=== PATIENT | female | born 1990 | race Caucasian/White ===

== ENCOUNTER 2016-05-30 15:00 | Inpatient (IN) | payer OTHER ==
[2016-05-30 17:28] VITALS: BMI 21.6
--- NOTE | 2016-05-30 18:14 | HP ---
COWS - Scale Resting Pulse: 0= [place] 80 or Below Sweatin=Flushed/Facial Moisture Restless Observation: 3= Extraneous Movement Pupil Size: 0= Normal to Room Light Bone or Joint Aches: 2= Severe Diffuse Aches Runny Nose/ Eye Tearin= Nasal Congestion GI Upset > 30mins: 2= Nausea/Diarrhea Tremor Observation: 2= Slight Tremor Visible Yawning Observation: 1= 1-2x During Session Anxiety or Irritability: 2=Irritable/Anxious Goose Flesh Skin: 0=Smooth Skin COWS Score: [address] [facility] Chief Complaint: WITHDRAWAL SX Allergies/Adverse Reactions: Allergies Allergy/AdvReac Type Severity Reaction Status Date / Time No Known Allergies Allergy Verified 05/30/16 17:35 History of Present Illness: 26 YEARS OLD FEMALE WITH LONG HISTORY OF OPIATE NICOTINE DEPENDENCE, HAS ASTHMA WEIGHT LOSS GERD AND BIPOLAR II IS ADMITTED TO DETOX Exam Limitations: No Limitations - Ebola screening Have you traveled outside of the country in the last 21 days: No Have you had contact with anyone from an Ebola affected area: No Have you been sick,other than usual withdrawal symptoms: No Do you have a fever: No - Review of Systems Constitutional: Chills, Loss of Appetite, Changes in sleep, Unexplained wgt Loss EENT: reports: Dental Problems (ORAL SORE UPPER GUM AND ORAL FLOOR), Other (EAR WAX RIGHT EAR) Respiratory: reports: No Symptoms reported Cardiac: reports: No Symptoms Reported GI: reports: Diarrhea, Nausea, Poor Appetite, Poor Fluid Intake, Indigestion, Abdominal cramping : reports: No Symptoms Reported Musculoskeletal: reports: Back Pain, Joint Pain, Muscle Pain, Neck Pain Integumentary: reports: Change in Color (BOTH INNER ELBOWS IV OPIATE) Neuro: reports: Seizure (LAST EPISODE 02/2015 - TREATED WITH KEPPRA LAST DOSE 3 MONTHS AGO), Tremors Endocrine: reports: No Symptoms Reported Hematology: reports: No Symptoms Reported Psychiatric: reports: Judgement Intact, Orientated x3, Anxious, Depressed Other Systems: Reviewed and Negative Patient History - Patient Medical History Hx Anemia: No Hx Asthma: Yes Hx Chronic Obstructive Pulmonary Disease (COPD): Yes Hx Cancer: No Hx Cardiac Disorders: No Hx Congestive Heart Failure: No Hx Hypertension: No Hx Hypercholesterolemia: No Hx Pacemaker: No HX Cerebrovascular Accident: No Hx Seizures: Yes (2014) Hx Dementia: No Hx Diabetes: No Hx Gastrointestinal Disorders: Yes Hx Liver Disease: No Hx Genitourinary Disorders: No Hx Sexually Transmitted Disorders: No Hx Renal Disease (ESRD): No Hx Thyroid Disease: No Hx Human Immunodeficiency Virus (HIV): No Hx Hepatitis C: No Hx Depression: No Hx Suicide Attempt: Yes (12 YEARS OLD CUT WRISTS) Hx Bipolar Disorder: Yes Hx Schizophrenia: No - Patient Surgical History Past Surgical History: No Hx Neurologic Surgery: No Hx Cataract Extraction: No Hx Cardiac Surgery: No Hx Lung Surgery: No Hx Breast Surgery: No Hx Breast Biopsy: No Hx Abdominal Surgery: No Hx Appendectomy: No Hx Cholecystectomy: No Hx Genitourinary Surgery: No Hx Orthopedic Surgery: No - PPD History Previous Implant?: Yes Documented Results: Negative w/o proof Implanted On Prior R Admission?: No PPD to be Administered?: Yes - Reproductive History Patient is a Female of Child Bearing Age (11 -55 yrs old): Yes Last Menstrual Period: 01/08/15 Patient : No - Smoking Cessation Smoking history: Current every day smoker Aproximately how many cigarettes per day: 2 Cigars Per Day: 0 Hx Chewing Tobacco Use: No Initiated information on smoking cessation: Yes 'Breaking Loose' booklet given: 05/30/16 - Substance & Tx. History Hx Alcohol Use: No Hx Substance Use: Yes Substance Use Type: Heroin, Marijuana, Opiates, Tranquilizers Hx Substance Use Treatment: Yes - Substances Abused Heroin Route: Injection Frequency: Daily Amount used: 15 bags Age of first use: 24 Date of Last Use: 05/29/16 Alprazolam (Xanax) Route: Oral Frequency: Daily Amount used: 10mg Age of first use: 14 Date of Last Use: 05/29/16 Family Disease History - Family Disease History Family Disease History: [place]: Mother, Brother, Other: Father (NO CONTACT), Mother Admission Physical Exam [facility] - Vital Signs Vital Signs: Vital Signs - 24 hr 05/30/16 17:25 Temperature 97.4 F L Pulse Rate 62 Respiratory 18 Rate Blood Pressure 113/62 - Physical General Appearance: Yes: Appropriately Dressed, Moderate Distress, Thin, Tremorous, Irritable, Sweating, Anxious HEENTM: Yes: Hearing grossly Normal, Normal ENT Inspection, Normocephalic, Normal Voice, Thrush Respiratory: Yes: Chest Non-Tender, No Respiratory Distress, No Accessory Muscle Use, Wheezing, Expiration Neck: Yes: Supple, Trachea in good position Breast: Yes: Breasts Symetrical Cardiology: Yes: Regular Rhythm, Regular Rate, S1, S2 Abdominal: Yes: Non Tender, Soft Genitourinary: Yes: Within Normal Limits, Vaginal Discharge (DIFLUCAN 150 MG PO X 1) Back: Yes: Normal Inspection Musculoskeletal: Yes: full range of Motion, Gait Steady, Back pain, Muscle Pain Extremities: Yes: Normal Range of Motion, Non-Tender, Tremors Neurological: Yes: Fully Oriented, Alert, Motor Strength 5/5, Normal Response, Depressed Affect Integumentary: Yes: Warm, Track [place] Lymphatic: Yes: Within Normal Limits - Diagnostic (1) Opioid dependence with withdrawal Current Visit: Yes Status: Acute (2) Asthma Current Visit: Yes Status: Acute Qualifiers: Asthma severity: mild persistent Asthma complication type: with status asthmaticus Qualified Code(s): J45.32 - Mild persistent asthma with status asthmaticus (3) Weight loss Current Visit: Yes Status: Acute (4) GERD (gastroesophageal reflux disease) Current Visit: Yes Status: Acute Qualifiers: Esophagitis presence: without esophagitis Qualified Code(s): K21.9 - Gastro-esophageal reflux disease without esophagitis (5) Nicotine dependence Current Visit: Yes Status: Acute Qualifiers: Nicotine product type: cigarettes Substance use status: in withdrawal Qualified Code(s): F17.213 - Nicotine dependence, cigarettes, with withdrawal (6) Bipolar II disorder Current Visit: Yes Status: Suspected (7) Thrush, oral Current Visit: Yes Status: Acute (8) Wax in ear Current Visit: Yes Status: Acute Cleared for Admission [facility] - Detox or Rehab [facility] Level of Care: Medically Managed Detox Regimen/Protocol: Methadone/Valium [facility] Breath Alcohol Content Breath Alcohol Content: 0 Urine Pregancy Test - Result Urine Test Results: Negative- NO Line Present Urine Drug Screen - Results Drug Screen Negative: No Urine Drug Screen Results: THC-Marijuana, OPI-Opiates, BZO-Benzodiazepines, MTD- Methadone, TCA-Tricyclic Antidepress, OXY-Oxycodone
[2016-05-30] MEDS ORDERED: MAGNESIUM CITRATE 300 ML BOTTLE PO PRN (18:20)
[2016-05-30] MEDS ORDERED: MAGNESIUM HYDROX 2400MG/30ML ORAL SUSPENSION 30 ML CUP PO PRN (18:20)
[2016-05-30] MEDS ORDERED: LOPERAMIDE HCL 2 MG CAPSULE PO PRN (18:20)
[2016-05-30] MEDS ORDERED: ACETAMINOPHEN 325 MG TABLET (FP) PO PRN (18:20)
[2016-05-30] MEDS ORDERED: guaiFENesin/D-METHORPHAN HB 10 ML UNIT-DOSE CUPS PO PRN (18:20)
[2016-05-30] MEDS ORDERED: MAG HYDROX/AL HYDROX/SIMETH 30 ML UNIT-DOSE CUP PO PRN (18:20)
[2016-05-30] MEDS ORDERED: MENTHOL/PHENOL 1 EACH UD MM PRN (18:20)
[2016-05-30] MEDS ORDERED: METHADONE HCL 10 MG TABLET (FOR DETOX USE ONLY) PO ONE ×2 (18:20→23:00)
[2016-05-30] MEDS ORDERED: diazePAM 5 MG TABLET PO ONE (18:20)
[2016-05-30] MEDS ORDERED: P-EPHED 60MG/TRIPROLIDI 2.5MG TABLET PO PRN (18:20)
[2016-05-30] MEDS ORDERED: NICOTINE POLACRILEX 2 MG GUM BC PRN (18:20)
[2016-05-30] MEDS ORDERED: ALBUTEROL SO4 2.5/IPRATROPIUM 0.5 INH SOL 3 ML VIAL.NEB. NEB PRN (18:23)
[2016-05-30] MEDS ORDERED: FLUCONAZOLE 50 MG TABLET PO ONE (18:26)
[2016-05-30] MEDS ORDERED: FLUCONAZOLE 100 MG TABLET (UD) PO ONE (20:45)
[2016-05-30] MEDS: diazePAM 5 MG TABLET PO SCH (22:24)
[2016-05-30] MEDS: CARBAMIDE PEROXIDE 6.5% OTIC 15 ML BOTTLE AD SCH (22:24)
[2016-05-30] MEDS: THIAMINE HCL 100 MG TABLET (FP) PO SCH (22:24)
[2016-05-30] MEDS: diphenhydrAMINE HCL 50 MG CAPSULE PO PRN (22:28)
[2016-05-30] MEDS: RANITIDINE HCL 150 MG TABLET (FP) PO SCH (22:29)
[2016-05-30 22:51] LABS: URINE APPEARANCE SLCLOUDY; URINE BILIRUBIN NEGATIVE (NEGATIVE); URINE BLOOD NEGATIVE (NEGATIVE); URINE COLOR YELLOW; URINE GLUCOSE (UA) NEGATIVE (NEGATIVE); URINE KETONE NEGATIVE (NEGATIVE); URINE NITRITE NEGATIVE (NEGATIVE); URINE UROBILINOGEN 2.0 E.U/dl E.U./dl (0.2-1.0)
[2016-05-30 22:52] LABS: URINE LEUK ESTERASE TRACE (NEGATIVE); URINE PROTEIN 2+ (NEGATIVE)
[2016-05-30 22:57] LABS: URINE BACTERIA RARE /hpf (NONE SEEN); URINE HYALINE CAST 2 /lpf; URINE MUCUS MANY; URINE RBC 5 /hpf (0-3); URINE WBC 26 /hpf (3-5)
[2016-05-30] MEDS: NYSTATIN 500,000 UNITS/5 ML SUSPENSION PO SCH (23:22)
[2016-05-31] MEDS: diazePAM 5 MG TABLET PO PRN ×3 (00:34→18:01)
[2016-05-31] MEDS: diphenhydrAMINE HCL 50 MG CAPSULE PO PRN (00:34)
[2016-05-31] MEDS: IBUPROFEN 400 MG TABLET (FP) PO PRN (00:35)
[2016-05-31] MEDS: ALBUTEROL SO4 6.7 GM HFA INHALER IH PRN (01:20)
[2016-05-31] MEDS: diazePAM 5 MG TABLET PO SCH ×3 (05:14→22:05)
[2016-05-31] MEDS: NYSTATIN 500,000 UNITS/5 ML SUSPENSION PO SCH ×4 (05:15→23:54)
[2016-05-31] MEDS ORDERED: ALBUTEROL SO4 6.7 GM HFA INHALER IH SCH (06:00)
[2016-05-31] MEDS ORDERED: METHADONE HCL 10 MG TABLET (FOR DETOX USE ONLY) PO SCH (10:00)
[2016-05-31 10:14] LABS: MCHC 33.6 g/dl (32.0-36.0); MEAN CELL VOLUME 83.4 fl (80-96); MEAN PLT VOLUME 9.8 fl (7.5-11.1); PLATELET COUNT 231 K/MM3 (134-434); RDW 15.5 % (11.6-15.6)
[2016-05-31] MEDS: PRENATAL VITAMINS W/ FOLIC ACID TABLET (FP) PO SCH (10:22)
[2016-05-31] MEDS: RANITIDINE HCL 150 MG TABLET (FP) PO SCH ×2 (10:22→22:05)
[2016-05-31] MEDS: NICOTINE 14 MG/24 HOURS TOPICAL PATCH TD SCH (10:23)
--- NOTE | 2016-05-31 10:29 | PN ---
[facility] CIWA - CIWA Score Nausea/Vomitin-No Nausea/No Vomiting Muscle Tremors: 4-Moderate,w/Arms Extend Anxiety: 3 Agitation: 4-Moderately Restless Paroxysmal Sweats: 3 Orientation: 0-Oriented Tacttile Disturbances: 0-None Auditory Disturbances: 0-None Visual Disturbances: 0-None Headache: 1-Very Mild CIWA-Ar Total Score: 15 [facility] COWS - Scale Resting Pulse: 0= [place] 80 or Below Sweatin=Flushed/Facial Moisture Restless Observation: 1= Difficult to Sit Still Pupil Size: 0= Normal to Room Light Bone or Joint Aches: 2= Severe Diffuse Aches Runny Nose/ Eye Tearin= Runny Nose/Eyes GI Upset > 30mins: 2= Nausea/Diarrhea Tremor Observation of Outstretched Hands: 2= Slight Tremor Visible Yawning Observation: 2= >3x During Session Anxiety or Irritability: 2=Irritable/Anxious Goose Flesh Skin: 0=Smooth Skin COWS Score: 15 [facility] Progress Note (SOAP) Subjective: nausea sweats shakes body aches interrupted sleep agitation irritable its hard to eat with my poor teeth foul smell with vaginal discharge Objective: 05/31/16 10:34 Vital Signs Temperature 98.2 F 05/31/16 09:55 Pulse Rate 61 05/31/16 09:55 Respiratory Rate 18 05/31/16 09:55 Blood Pressure 132/83 05/31/16 09:55 O2 Sat by Pulse Oximetry (%) Laboratory Tests 05/30/16 05/31/16 05/31/16 22:40 05:50 05:50 WBC 8.0 RBC 4.58 Hgb 12.8 Hct 38.2 MCV 83.4 MCHC 33.6 RDW 15.5 Plt Count 231 MPV 9.8 Sodium 143 Potassium 4.0 Chloride 106 Urine Color Yellow Urine Appearance Slcloudy Urine pH 7.0 Ur Specific [place] 1.020 Urine Protein 2+ H Urine Glucose (UA) Negative Urine Ketones Negative Urine Blood Negative Urine Nitrite Negative Urine Bilirubin Negative Urine Urobilinogen 2.0 e.u/dl H Ur Leukocyte Esterase Trace H Urine RBC 5 Urine WBC 26 Ur Epithelial Cells Few Urine Bacteria Rare Hyaline Casts 2 Urine Mucus Many awake/alert ambulating no acute distress Assessment: 05/31/16 10:35 withdrawal sx Plan: continue detox increase fluids flagyl 500mg tid tigan po prn analgesic balm dietary technical sales consultant
--- NOTE | 2016-05-31 10:46 | EKG ---
Test Reason : Blood Pressure : / mmHG Vent. Rate : 046 BPM Atrial Rate : 046 BPM P-R Int : 148 ms QRS Dur : 084 ms QT Int : 504 ms P-R-T Axes : 035 041 033 degrees QTc Int : 441 ms SINUS BRADYCARDIA WITH SINUS ARRHYTHMIA OTHERWISE NORMAL ECG NO PREVIOUS ECGS AVAILABLE Confirmed by RAISA DUMONT MD ([id number]) on 05/31/2016 10:46:38 AM Referred By: Confirmed By:RAISA DUMONT MD
[2016-05-31] MEDS ORDERED: TRIMETHOBENZAMIDE HCL 300 MG CAPSULE PO ONE (10:50)
[2016-05-31 10:55] LABS: ALBUMIN 3.7 g/dl (3.4-5.0); ALK PHOS 51 U/L (45-117); ANION GAP 11 (8-16); BILIRUBIN,TOTAL 0.5 mg/dL (0.2-1.0); CALCIUM 9.1 mg/dL (8.5-10.1); CO2 26 mmol/L (21-32); CREATININE 0.8 mg/dL (0.55-1.02); GLUCOSE,RANDOM 102 mg/dL (74-106); SGOT/AST 25 U/L (15-37); SGPT/ALT 30 U/L (12-78); TOT PROT 7.7 g/dl (6.4-8.2)
[2016-05-31] MEDS: CARBAMIDE PEROXIDE 6.5% OTIC 15 ML BOTTLE AD SCH ×2 (11:02→22:06)
[2016-05-31] MEDS: LIDOCAINE 5% TOPICAL PATCH TP SCH (11:05)
[2016-05-31 12:30] LABS: HIV 1 & 2 AB NEGATIVE; HIV 1 AGp24 NEGATIVE
[2016-05-31] MEDS: hydrOXYzine PAMOATE 50 MG CAPSULE (FP) PO PRN (13:03)
[2016-05-31] MEDS: metroNIDAZOLE 250 MG TABLET PO SCH ×2 (15:30→22:05)
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
[2016-05-31] MEDS: QUEtiapine FUMARATE 100 MG TABLET (FP) PO SCH (22:05)
[2016-05-31] MEDS: THIAMINE HCL 100 MG TABLET (FP) PO SCH (22:05)
[2016-05-31] MEDS: DIVALPROEX SODIUM 250 MG TABLET E.C. (FP) PO SCH (22:05)
[2016-05-31] MEDS: ZOLPIDEM TARTRATE 5 MG TABLET PO PRN (22:05)
[2016-05-31] MEDS: METHYL SALICYLATE/MENTHOL OINT 30 GM TUBE TP SCH (22:06)
[2016-06-01] MEDS: diazePAM 5 MG TABLET PO PRN ×3 (05:19→18:49)
[2016-06-01] MEDS: metroNIDAZOLE 250 MG TABLET PO SCH ×3 (05:20→22:06)
[2016-06-01] MEDS: NYSTATIN 500,000 UNITS/5 ML SUSPENSION PO SCH ×3 (05:23→17:24)
[2016-06-01] MEDS: TRIMETHOBENZAMIDE HCL 300 MG CAPSULE PO PRN (10:03)
[2016-06-01] MEDS: METHADONE HCL 5 MG TABLET (FOR DETOX USE ONLY) PO SCH (10:03)
[2016-06-01] MEDS: DIVALPROEX SODIUM 250 MG TABLET E.C. (FP) PO SCH ×2 (10:03→22:06)
[2016-06-01] MEDS: PRENATAL VITAMINS W/ FOLIC ACID TABLET (FP) PO SCH (10:03)
[2016-06-01] MEDS: diazePAM 5 MG TABLET PO SCH ×2 (10:04→22:07)
[2016-06-01] MEDS: NICOTINE 14 MG/24 HOURS TOPICAL PATCH TD SCH (10:05)
[2016-06-01] MEDS: METHYL SALICYLATE/MENTHOL OINT 30 GM TUBE TP SCH ×2 (10:05→22:07)
[2016-06-01] MEDS: RANITIDINE HCL 150 MG TABLET (FP) PO SCH ×2 (10:07→22:06)
[2016-06-01] MEDS: hydrOXYzine PAMOATE 50 MG CAPSULE (FP) PO PRN ×2 (10:07→18:14)
[2016-06-01] MEDS: LIDOCAINE 5% TOPICAL PATCH TP SCH (11:00)
--- NOTE | 2016-06-01 11:26 | PN ---
[facility] CIWA - CIWA Score Nausea/Vomitin Muscle Tremors: 3 Anxiety: 3 Agitation: 3 Paroxysmal Sweats: 3 Orientation: 0-Oriented Tacttile Disturbances: 1-Very Mild Itch/Numbness Auditory Disturbances: 0-None Visual Disturbances: 0-None Headache: 0-None Present CIWA-Ar Total Score: 15 S COWS - Scale Resting Pulse: 1= [place] 81-100 Sweatin= Chills/Flushing Restless Observation: 1= Difficult to Sit Still Pupil Size: 1= Pupils >than Normal Bone or Joint Aches: 1= Mild Discomfort Runny Nose/ Eye Tearin= Nasal Congestion GI Upset > 30mins: 1= Stomach Cramp Tremor Observation of Outstretched Hands: 1= Tremor [place], Not Seen Yawning Observation: 0= None Anxiety or Irritability: 0= None Goose Flesh Skin: 0=Smooth Skin COWS Score: 8 [facility] Progress Note (SOAP) Subjective: interrupted sleep, sweats, Objective: 06/01/16 11:23 Vital Signs Temperature 98.1 F 06/01/16 09:58 Pulse Rate 74 06/01/16 09:58 Respiratory Rate 16 06/01/16 09:58 Blood Pressure 145/83 06/01/16 09:58 O2 Sat by Pulse Oximetry (%) Laboratory Tests 05/30/16 05/31/16 05/31/16 22:40 05:50 05:50 WBC 8.0 RBC 4.58 Hgb 12.8 Hct 38.2 MCV 83.4 MCHC 33.6 RDW 15.5 Plt Count 231 MPV 9.8 Sodium 143 Potassium 4.0 Chloride 106 Carbon Dioxide 26 Anion Gap 11 BUN 9 Creatinine 0.8 Creat Clearance w eGFR > 60 Random Glucose 102 Calcium 9.1 Total Bilirubin 0.5 AST 25 ALT 30 Alkaline Phosphatase 51 Total Protein 7.7 Albumin 3.7 Urine Color Yellow Urine Appearance Slcloudy Urine pH 7.0 Ur Specific [place] 1.020 Urine Protein 2+ H Urine Glucose (UA) Negative Urine Ketones Negative Urine Blood Negative Urine Nitrite Negative Urine Bilirubin Negative Urine Urobilinogen 2.0 e.u/dl H Ur Leukocyte Esterase Trace H Urine RBC 5 Urine WBC 26 Ur Epithelial Cells Few Urine Bacteria Rare Hyaline Casts 2 Urine Mucus Many Valproic Acid RPR Titer HIV 1&2 Antibody Screen HIV P24 Antigen 05/31/16 05/31/16 05/31/16 05:50 05:50 05:50 WBC RBC Hgb Hct MCV MCHC RDW Plt Count MPV Sodium Potassium Chloride Carbon Dioxide Anion Gap BUN Creatinine Creat Clearance w eGFR Random Glucose Calcium Total Bilirubin AST ALT Alkaline Phosphatase Total Protein Albumin Urine Color Urine Appearance Urine pH Ur Specific [place] Urine Protein Urine Glucose (UA) Urine Ketones Urine Blood Urine Nitrite Urine Bilirubin Urine Urobilinogen Ur Leukocyte Esterase Urine RBC Urine WBC Ur Epithelial Cells Urine Bacteria Hyaline Casts Urine Mucus Valproic Acid < 3.000 L RPR Titer Nonreactive HIV 1&2 Antibody Screen Negative HIV P24 Antigen Negative pt aox3 irritable , Assessment: 06/01/16 11:24 withdrawal sx;s anxiety Plan: cont. detox increase fluids flexeril 10mg tid
[2016-06-01] MEDS: CARBAMIDE PEROXIDE 6.5% OTIC 15 ML BOTTLE AD SCH ×2 (11:51→22:07)
[2016-06-01] MEDS: QUEtiapine FUMARATE 100 MG TABLET (FP) PO SCH (22:06)
[2016-06-01] MEDS: ZOLPIDEM TARTRATE 5 MG TABLET PO PRN (22:06)
[2016-06-01] MEDS: CYCLOBENZAPRINE HCL 10 MG TABLET (FP) PO PRN (22:06)
[2016-06-01] MEDS: THIAMINE HCL 100 MG TABLET (FP) PO SCH (22:06)
[2016-06-02] MEDS: hydrOXYzine PAMOATE 50 MG CAPSULE (FP) PO PRN ×3 (00:09→20:15)
[2016-06-02] MEDS: NYSTATIN 500,000 UNITS/5 ML SUSPENSION PO SCH ×4 (00:14→17:41)
[2016-06-02] MEDS: metroNIDAZOLE 250 MG TABLET PO SCH ×3 (07:15→22:31)
[2016-06-02] MEDS: diazePAM 5 MG TABLET PO PRN ×3 (07:22→17:41)
[2016-06-02] MEDS: METHYL SALICYLATE/MENTHOL OINT 30 GM TUBE TP SCH ×2 (10:08→22:31)
[2016-06-02] MEDS: RANITIDINE HCL 150 MG TABLET (FP) PO SCH ×2 (10:09→22:30)
[2016-06-02] MEDS: NICOTINE 14 MG/24 HOURS TOPICAL PATCH TD SCH (10:09)
[2016-06-02] MEDS: PRENATAL VITAMINS W/ FOLIC ACID TABLET (FP) PO SCH (10:09)
[2016-06-02] MEDS: METHADONE HCL 5 MG TABLET (FOR DETOX USE ONLY) PO SCH (10:09)
[2016-06-02] MEDS: DIVALPROEX SODIUM 250 MG TABLET E.C. (FP) PO SCH ×2 (10:09→22:31)
[2016-06-02] MEDS: diazePAM 5 MG TABLET PO SCH ×2 (10:09→22:31)
[2016-06-02] MEDS: CARBAMIDE PEROXIDE 6.5% OTIC 15 ML BOTTLE AD SCH ×2 (10:13→22:31)
[2016-06-02] MEDS: LIDOCAINE 5% TOPICAL PATCH TP SCH (10:13)
[2016-06-02] MEDS: TRIMETHOBENZAMIDE HCL 300 MG CAPSULE PO PRN (10:15)
[2016-06-02] MEDS: CYCLOBENZAPRINE HCL 10 MG TABLET (FP) PO PRN ×2 (10:15→22:31)
--- NOTE | 2016-06-02 11:36 | PN ---
Psychiatric Progress Note Vital Signs: Vital Signs Period Temp Pulse Resp BP Sys/Pedro Pulse Ox Last 24 Hr 95.8 F-99.3 F 58-82 14-20 117-140/55-75 Date of Session: 06/02/16 Chief Complaint:: Insomnia HPI: Patient reports taking prior to admission Seroquel 300mg po qhs, current order for Seroquel 100mg po qhs is not enough for h[Insomnia she has, patioent asking to adjust her Seroquel dosage Current Medications: Active Medications Generic Name Dose Route Start Last Admin Trade Name Freq PRN Reason Stop Dose Admin Acetaminophen 650 mg 05/30/16 18:20 Tylenol - PO Q4H PRN FEVER OR PAIN Al Hydroxide/Mg Hydroxide 30 ml 05/30/16 18:20 Mylanta Oral Suspension - PO Q6H PRN DYSPEPSIA Albuterol Sulfate 2 puff 05/30/16 18:22 05/31/16 01:20 Ventolin Hfa Inhaler - IH 2 puff Q4H PRN Administration SHORT OF BREATH/WHEEZING Albuterol/Ipratropium 1 amp 05/30/16 18:23 Duoneb - NEB Q6H PRN SHORTNESS OF BREATH Carbamide Perox/Anhydrous Glycerin 10 drop 05/30/16 22:00 06/02/16 10:13 Debrox - AD 06/03/16 21:59 Not Given BID FRIDA Cyclobenzaprine HCl 10 mg 06/01/16 10:10 06/02/16 10:15 Flexeril - PO 10 mg TID PRN Administration MUSCLE SPASMS Diazepam 10 mg 05/30/16 18:20 06/02/16 07:22 Valium - PO 06/02/16 18:20 10 mg Q4H PRN Administration WITHDRAWAL(CONT SUBST) Diazepam 5 mg 06/01/16 10:00 06/02/16 10:09 Valium - PO 06/02/16 22:01 5 mg BID FRIDA Administration Diazepam 5 mg 06/03/16 10:00 Valium - PO 06/03/16 10:01 DAILY FRIDA Diphenhydramine HCl 50 mg 05/30/16 18:20 05/31/16 00:34 Benadryl - PO 50 mg HSMR1 PRN Administration INSOMNIA Divalproex Sodium 250 mg 05/31/16 22:00 06/02/16 10:09 Depakote - PO 250 mg BID FRIDA Administration Eucalyptus/Menthol/Phenol/Sorbitol 1 each 05/30/16 18:20 Cepastat Lozenge - MM Q4H PRN SORE THROAT Guaifenesin 10 ml 05/30/16 18:20 Robitussin Dm - PO Q6H PRN COUGH Hydroxyzine Pamoate 50 mg 05/31/16 12:47 06/02/16 11:15 Vistaril - PO 50 mg Q4H PRN Administration FOR ITCHING Ibuprofen 400 mg 05/30/16 18:20 05/31/16 00:35 Motrin - PO 400 mg Q6H PRN Administration SEVERE PAIN Lidocaine 1 patch 05/31/16 10:45 06/02/16 10:13 Lidoderm Patch - TP 1 patch DAILY FRIDA Administration Loperamide HCl 4 mg 05/30/16 18:20 Imodium - PO Q6H PRN DIARRHEA Magnesium Citrate 300 ml 05/30/16 18:20 Citroma - PO Q48H PRN CONSTIPATION Magnesium Hydroxide 30 ml 05/30/16 18:20 Milk Of Magnesia - PO DAILY PRN CONSTIPATION Methadone HCl 10 mg 06/03/16 10:00 Dolophine - PO 06/03/16 10:01 DAILY FRIDA Methadone HCl 5 mg 06/04/16 06:00 Dolophine - PO 06/04/16 06:01 DAILY@0600 FRIDA Methyl Salicylate 1 applic 05/31/16 22:00 06/02/16 10:08 Chava-Lamb - TP 1 applic BID FRIDA Administration Metronidazole 500 mg 05/31/16 14:00 06/02/16 07:15 Flagyl - PO 06/07/16 13:59 500 mg TID FRIDA Administration Nicotine 14 mg 05/31/16 10:00 06/02/16 10:09 Nicoderm Patch - TD Not Given DAILY FRIDA Nicotine Polacrilex 2 mg 05/30/16 18:20 Nicorette Gum - BC Q2H PRN NICOTINE REPLACEMENT RX Nystatin 500,000 units 05/31/16 00:00 06/02/16 11:15 Nystatin Oral Suspension - PO 06/05/16 00:00 500,000 units Q6HPO FRIDA Administration Multivit/Folic Acid/Iron 1 tab 05/31/16 10:00 06/02/16 10:09 Vitamins (Sjr) - PO 1 tab DAILY FRIDA Administration Pseudoephedrine/Triprolidine 1 combo 05/30/16 18:20 Actifed - PO TID PRN NASAL CONGESTION Quetiapine Fumarate 100 mg 05/31/16 22:00 06/01/16 22:06 Seroquel - PO 100 mg HS FRIDA Administration Ranitidine HCl 150 mg 05/30/16 22:00 06/02/16 10:09 Zantac - PO 150 mg BID FRIDA Administration Thiamine HCl 100 mg 05/30/16 22:00 06/01/16 22:06 Vitamin B1 - PO 100 mg HS FRIDA Administration Trimethobenzamide HCl 300 mg 05/31/16 10:33 06/02/16 10:15 Tigan - PO 300 mg QID PRN Administration NAUSEA AND/OR VOMITING Zolpidem Tartrate 5 mg 05/31/16 16:10 06/01/16 22:06 Ambien - PO 5 mg HS PRN Administration INSOMNIA Medication(s) Change(s): Seroquel 200mg po qhs Mental Status Exam - Mental Status Exam Cognitive Function: Fair Patient Appearance: Unkempt Mood: Anxious Affect: Mood Congruent Patient Behavior: Cooperative Speech Pattern: Appropriate Voice Loudness: Mildly Loud Thought Process: Goal Oriented Thought Disorder: Being Controlled Hallucinations: Denies Suicidal Ideation: Denies Homicidal Ideation: Denies Insight/Judgement: Fair Sleep: Difficulty falling asleep Appetite: Weight loss Muscle strength/Tone: Normal Gait/Station: Normal Additional Comments: Seroquel 200mg po qhs Psychiatric Treatment Plan - Problem List (1) Benzodiazepine dependence Current Visit: Yes (2) Cannabis dependence Current Visit: Yes (3) Nicotine dependence Current Visit: Yes Qualifiers: Nicotine product type: cigarettes Substance use status: in withdrawal Qualified Code(s): F17.213 - Nicotine dependence, cigarettes, with withdrawal (4) Opioid dependence with withdrawal Current Visit: Yes (5) Substance induced mood disorder Current Visit: Yes (6) Bipolar II disorder Current Visit: Yes Initial treatment plan: Seroquel 200mg po qhs
[2016-06-02] MEDS: TRIMETHOBENZAMIDE HCL 200MG/2ML INJ IM PRN ×2 (12:04→20:15)
--- NOTE | 2016-06-02 13:32 | PN ---
[facility] Progress Note (SOAP) Subjective: interrupted sleep, sweats, nausea ,vomiting Objective: 06/02/16 13:30 Vital Signs Temperature 98.2 F 06/02/16 09:37 Pulse Rate 77 06/02/16 09:37 Respiratory Rate 16 06/02/16 09:37 Blood Pressure 124/75 06/02/16 09:37 O2 Sat by Pulse Oximetry (%) Laboratory Tests 05/30/16 05/31/16 05/31/16 22:40 05:50 05:50 WBC 8.0 RBC 4.58 Hgb 12.8 Hct 38.2 MCV 83.4 MCHC 33.6 RDW 15.5 Plt Count 231 MPV 9.8 Sodium 143 Potassium 4.0 Chloride 106 Carbon Dioxide 26 Anion Gap 11 BUN 9 Creatinine 0.8 Creat Clearance w eGFR > 60 Random Glucose 102 Calcium 9.1 Total Bilirubin 0.5 AST 25 ALT 30 Alkaline Phosphatase 51 Total Protein 7.7 Albumin 3.7 Urine Color Yellow Urine Appearance Slcloudy Urine pH 7.0 Ur Specific [place] 1.020 Urine Protein 2+ H Urine Glucose (UA) Negative Urine Ketones Negative Urine Blood Negative Urine Nitrite Negative Urine Bilirubin Negative Urine Urobilinogen 2.0 e.u/dl H Ur Leukocyte Esterase Trace H Urine RBC 5 Urine WBC 26 Ur Epithelial Cells Few Urine Bacteria Rare Hyaline Casts 2 Urine Mucus Many Valproic Acid RPR Titer HIV 1&2 Antibody Screen HIV P24 Antigen 05/31/16 05/31/16 05/31/16 05:50 05:50 05:50 WBC RBC Hgb Hct MCV MCHC RDW Plt Count MPV Sodium Potassium Chloride Carbon Dioxide Anion Gap BUN Creatinine Creat Clearance w eGFR Random Glucose Calcium Total Bilirubin AST ALT Alkaline Phosphatase Total Protein Albumin Urine Color Urine Appearance Urine pH Ur Specific [place] Urine Protein Urine Glucose (UA) Urine Ketones Urine Blood Urine Nitrite Urine Bilirubin Urine Urobilinogen Ur Leukocyte Esterase Urine RBC Urine WBC Ur Epithelial Cells Urine Bacteria Hyaline Casts Urine Mucus Valproic Acid < 3.000 L RPR Titer Nonreactive HIV 1&2 Antibody Screen Negative HIV P24 Antigen Negative pt aox3 + vomiting Assessment: 06/02/16 13:31 withdrawl sx's n/v may be 2nd to flagyl 06/02/16 13:31 Plan: cont detox increase fluids tigan im
[2016-06-02] MEDS: IBUPROFEN 400 MG TABLET (FP) PO PRN (13:39)
[2016-06-02] MEDS: QUEtiapine FUMARATE 100 MG TABLET (FP) PO SCH (22:30)
[2016-06-02] MEDS: THIAMINE HCL 100 MG TABLET (FP) PO SCH (22:30)
[2016-06-02] MEDS: ZOLPIDEM TARTRATE 5 MG TABLET PO PRN (22:30)
[2016-06-02] MEDS: ALBUTEROL SO4 6.7 GM HFA INHALER IH PRN (22:32)
[2016-06-03] MEDS: NYSTATIN 500,000 UNITS/5 ML SUSPENSION PO SCH ×2 (00:07→05:53)
[2016-06-03] MEDS: metroNIDAZOLE 250 MG TABLET PO SCH (05:52)
[2016-06-03] MEDS: PRENATAL VITAMINS W/ FOLIC ACID TABLET (FP) PO SCH (09:28)
[2016-06-03] MEDS: RANITIDINE HCL 150 MG TABLET (FP) PO SCH (09:28)
[2016-06-03] MEDS: DIVALPROEX SODIUM 250 MG TABLET E.C. (FP) PO SCH (09:28)
[2016-06-03] MEDS: CYCLOBENZAPRINE HCL 10 MG TABLET (FP) PO PRN (09:30)
[2016-06-03] MEDS ORDERED: diazePAM 5 MG TABLET PO SCH (10:00)
[2016-06-03] MEDS ORDERED: METHADONE HCL 10 MG TABLET (FOR DETOX USE ONLY) PO SCH (10:00)
[2016-06-03 10:42] VITALS: BP 131/73; PULSE 83; TEMP 98.4
--- NOTE | 2016-06-03 12:50 | DS ---
[facility] Detox Discharge Summary Admission Date: 05/30/16 Discharge Date: 06/03/16 - History Present History: Cannabis Dependence, Opioid Dependence, Sedative Dependence Additional Comments: ADVISED PATIENT TO FOLLOW-UP WITH DRYWALL APPLICATOR AFTER DISCHARGE FROM DETOX FOR GENERAL MEDICAL ASSESSMENT. Pertinent Past History: Asthma, GERD, Oral thrush. - Physical Exam Results Vital Signs: Vital Signs Temperature 98.4 F 06/03/16 10:42 Pulse Rate 83 06/03/16 10:42 Respiratory Rate 20 06/03/16 10:42 Blood Pressure 131/73 06/03/16 10:42 O2 Sat by Pulse Oximetry (%) Pertinent Admission Physical Exam Findings: WITHDRAWAL SYMPTOMS. Laboratory Last Values WBC 8.0 K/mm3 (4.0-10.0) 05/31/16 05:50 RBC 4.58 M/mm3 (3.60-5.2) 05/31/16 05:50 Hgb 12.8 GM/dL (10.7-15.3) 05/31/16 05:50 Hct 38.2 % (32.4-45.2) 05/31/16 05:50 MCV 83.4 fl (80-96) 05/31/16 05:50 MCHC 33.6 g/dl (32.0-36.0) 05/31/16 05:50 RDW 15.5 % (11.6-15.6) 05/31/16 05:50 Plt Count 231 K/MM3 (134-434) 05/31/16 05:50 MPV 9.8 fl (7.5-11.1) 05/31/16 05:50 Sodium 143 mmol/L (136-145) 05/31/16 05:50 Potassium 4.0 mmol/L (3.5-5.1) 05/31/16 05:50 Chloride 106 mmol/L (98-107) 05/31/16 05:50 Carbon Dioxide 26 mmol/L (21-32) 05/31/16 05:50 Anion Gap 11 (8-16) 05/31/16 05:50 BUN 9 mg/dL (7-18) 05/31/16 05:50 Creatinine 0.8 mg/dL (0.55-1.02) 05/31/16 05:50 Creat Clearance w eGFR > 60 (>60) 05/31/16 05:50 Random Glucose 102 mg/dL (74-106) 05/31/16 05:50 Calcium 9.1 mg/dL (8.5-10.1) 05/31/16 05:50 Total Bilirubin 0.5 mg/dL (0.2-1.0) 05/31/16 05:50 AST 25 U/L (15-37) 05/31/16 05:50 ALT 30 U/L (12-78) 05/31/16 05:50 Alkaline Phosphatase 51 U/L (45-117) 05/31/16 05:50 Total Protein 7.7 g/dl (6.4-8.2) 05/31/16 05:50 Albumin 3.7 g/dl (3.4-5.0) 05/31/16 05:50 Urine Color Yellow 05/30/16 22:40 Urine Appearance Slcloudy 05/30/16 22:40 Urine pH 7.0 (5.0-8.0) 05/30/16 22:40 Ur Specific [place] 1.020 (1.001-1.035) 05/30/16 22:40 Urine Protein 2+ (NEGATIVE) H 05/30/16 22:40 Urine Glucose (UA) Negative (NEGATIVE) 05/30/16 22:40 Urine Ketones Negative (NEGATIVE) 05/30/16 22:40 Urine Blood Negative (NEGATIVE) 05/30/16 22:40 Urine Nitrite Negative (NEGATIVE) 05/30/16 22:40 Urine Bilirubin Negative (NEGATIVE) 05/30/16 22:40 Urine Urobilinogen 2.0 e.u/dl E.U./dl (0.2-1.0) H 05/30/16 22:40 Ur Leukocyte Esterase Trace (NEGATIVE) H 05/30/16 22:40 Urine RBC 5 /hpf (0-3) 05/30/16 22:40 Urine WBC 26 /hpf (3-5) 05/30/16 22:40 Ur Epithelial Cells Few /hpf (FEW) 05/30/16 22:40 Urine Bacteria Rare /hpf (NONE SEEN) 05/30/16 22:40 Hyaline Casts 2 /lpf 05/30/16 22:40 Urine Mucus Many 05/30/16 22:40 Valproic Acid < 3.000 ug/ml (50-100) L 05/31/16 05:50 RPR Titer Nonreactive (NONREACTIVE) 05/31/16 05:50 HIV 1&2 Antibody Screen Negative 05/31/16 05:50 HIV P24 Antigen Negative 05/31/16 05:50 LABS NOTED. - Treatment Hospital Course: Detoxed Safely, Responded well - Medication Discharge Medications: Ambulatory Orders Albuterol Sulfate Inhaler - [Ventolin Hfa Inhaler -] 1 - 2 inh PO QID 05/30/16 Divalproex [Depakote -] 500 mg PO DAILY 05/30/16 Quetiapine Fumarate [Seroquel -] 300 mg PO HS 05/30/16 Divalproex [Depakote -] 250 mg PO BID #30 tablet.ec 05/31/16 Quetiapine Fumarate [Seroquel] 100 mg PO HS #30 tablet 05/31/16 - Diagnosis (1) Benzodiazepine dependence Status: Acute (2) Cannabis dependence Status: Acute (3) Nicotine dependence Status: Chronic Qualifiers: Nicotine product type: cigarettes Substance use status: uncomplicated Qualified Code(s): F17.210 - Nicotine dependence, cigarettes, uncomplicated (4) Opioid dependence with withdrawal Status: Acute (5) Substance induced mood disorder Status: Acute (6) Thrush, oral Status: Acute (7) Wax in ear Status: Acute (8) Weight loss Status: Acute (9) Asthma Status: Chronic Qualifiers: Asthma severity: mild persistent Asthma complication type: with status asthmaticus Qualified Code(s): J45.32 - Mild persistent asthma with status asthmaticus (10) GERD (gastroesophageal reflux disease) Status: Chronic Qualifiers: Esophagitis presence: without esophagitis Qualified Code(s): K21.9 - Gastro-esophageal reflux disease without esophagitis - AMA Did Patient Leave Against Medical Advice: Yes (PATIENT WANTED TO LEAVE DETOX EARLY TO GO TO OUTPATIENT PROGRAM.)
[2016-06-04] MEDS ORDERED: METHADONE HCL 5 MG TABLET (FOR DETOX USE ONLY) PO SCH (06:00)
== END 2016-06-03 09:51 | disposition left against medical advice (07) | DRG 770 ==
LOC: YASAS 15:00 → Y6N 19:09
PROVIDERS: ADMIT Internal Medicine Addiction Medicine; ATTEND Internal Medicine Addiction Medicine
PROC: HZ2ZZZZ Detoxification Services for Substance Abuse Treatment (ICD-10-PCS; principal; 2016-06-03)
DX: F11.23 Opioid dependence with withdrawal (principal); F12.20 Cannabis dependence, uncomplicated; F17.210 Nicotine dependence, cigarettes, uncomplicated; F19.24 Other psychoactive substance dependence with psychoactive substance-induced mood disorder; F31.81 Bipolar II disorder; J45.32 Mild persistent asthma with status asthmaticus; K21.9 Gastro-esophageal reflux disease without esophagitis; B37.0 Candidal stomatitis; H61.21 Impacted cerumen, right ear; R63.4 Abnormal weight loss; Z68.21 Body mass index [BMI] 21.0-21.9, adult
CPT/HCPCS: 36415; 80053; 80164; 81003; 81015; 85027; 86593; 87389; 93005; 93010

== ENCOUNTER 2016-08-13 12:40 | Inpatient (IN) | payer OTHER ==
[2016-08-13 13:13] VITALS: BMI 20.6
--- NOTE | 2016-08-13 13:28 | HP ---
COWS - Scale Resting Pulse: 0= [place] 80 or Below Sweatin= Chills/Flushing Restless Observation: 1= Difficult to Sit Still Pupil Size: 0= Normal to Room Light Bone or Joint Aches: 1= Mild Discomfort Runny Nose/ Eye Tearin= Nasal Congestion GI Upset > 30mins: 1= Stomach Cramp Tremor Observation: 1= Tremor [place], Not Seen Yawning Observation: 1= 1-2x During Session Anxiety or Irritability: 2=Irritable/Anxious Goose Flesh Skin: 0=Smooth Skin COWS Score: 9 Admission ROS S - HPI Chief Complaint: I'm tired, I have no more money, I need help Allergies/Adverse Reactions: Allergies Allergy/AdvReac Type Severity Reaction Status Date / Time No Known Allergies Allergy Verified 08/13/16 14:15 History of Present Illness: 26 yo woman here for detox from heroin. Also using K-2 and some alcohol. Previous detox here in may 2016. Last seizure february 2016. Exam Limitations: Clinical Condition - Ebola screening Have you traveled outside of the country in the last 21 days: No Have you had contact with anyone from an Ebola affected area: No Have you been sick,other than usual withdrawal symptoms: No Do you have a fever: No - Review of Systems Constitutional: Loss of Appetite, Malaise, Night Sweats, Changes in sleep EENT: reports: Blurred Vision, Nose Congestion Respiratory: reports: No Symptoms reported Cardiac: reports: No Symptoms Reported GI: reports: Nausea, Poor Appetite, Indigestion : reports: No Symptoms Reported Musculoskeletal: reports: Back Pain, Muscle Pain Integumentary: reports: No Symptoms Reported Neuro: reports: Headache Endocrine: reports: No Symptoms Reported Hematology: reports: No Symptoms Reported Psychiatric: reports: Judgement Intact, Mood/Affect Appropiate, Orientated x3, Anxious Other Systems: Reviewed and Negative Patient History - Patient Medical History Hx Anemia: No Hx Asthma: Yes Hx Chronic Obstructive Pulmonary Disease (COPD): Yes Hx Cancer: No Hx Cardiac Disorders: No Hx Congestive Heart Failure: No Hx Hypertension: No Hx Hypercholesterolemia: No Hx Pacemaker: No HX Cerebrovascular Accident: No Hx Seizures: Yes (february 2016) Hx Dementia: No Hx Diabetes: No Hx Gastrointestinal Disorders: Yes Hx Liver Disease: No Hx Genitourinary Disorders: No Hx Sexually Transmitted Disorders: No Hx Renal Disease (ESRD): No Hx Thyroid Disease: No Hx Human Immunodeficiency Virus (HIV): No Hx Hepatitis C: No Hx Depression: No Hx Suicide Attempt: Yes (12 YEARS OLD CUT WRISTS) Hx Bipolar Disorder: Yes (on meds - poor adherence) Hx Schizophrenia: No - Patient Surgical History Past Surgical History: No Hx Neurologic Surgery: No Hx Cataract Extraction: No Hx Cardiac Surgery: No Hx Lung Surgery: No Hx Breast Surgery: No Hx Breast Biopsy: No Hx Abdominal Surgery: No Hx Appendectomy: No Hx Cholecystectomy: No Hx Genitourinary Surgery: No Hx Section: No Hx Orthopedic Surgery: Yes (left cheek bone with plate 2013) Anesthesia Reaction: No - PPD History Previous Implant?: Yes Documented Results: Negative w/proof Implanted On Prior [facility] Admission?: Yes Date: 06/01/16 PPD to be Administered?: No - Reproductive History Patient is a Female of Child Bearing Age (11 -55 yrs old): Yes Last Menstrual Period: 01/08/15 - Smoking Cessation Smoking history: Current some day smoker Have you smoked in the past 12 months: Yes Aproximately how many cigarettes per day: 2 Cigars Per Day: 0 Hx Chewing Tobacco Use: No Initiated information on smoking cessation: Yes 'Breaking Loose' booklet given: 08/13/16 (give on floor) - Substance & Tx. History Hx Alcohol Use: Yes Hx Substance Use: Yes Substance Use Type: Alcohol, Cocaine, Heroin, Marijuana Hx Substance Use Treatment: Yes - Substances Abused Alcohol Route: Oral Frequency: 1-3 times last 30 days Amount used: 3 pints Age of first use: 16 Date of Last Use: 08/11/16 Heroin Route: Injection Frequency: Daily Amount used: 3 bundles Age of first use: 23 Date of Last Use: 08/13/16 Cocaine Route: Injection Frequency: 1-3 times last 30 days Amount used: two $20 bags Age of first use: 23 Date of Last Use: 08/06/16 Marijuana/Hashish Route: Smoking Frequency: Daily Amount used: 30 blunts Age of first use: 13 Date of Last Use: 08/13/16 K-2 Route: Smoking Frequency: Daily Amount used: 2 bags Age of first use: 24 Date of Last Use: 08/13/16 Family Disease History - Family Disease History Family Disease History: [place]: Mother (alive, hx etoh), Brother (alive, ), Other: Father (NO CONTACT), Mother, Brother Admission Physical Exam [facility] - Vital Signs Vital Signs: Vital Signs - 24 hr 08/13/16 13:09 Temperature 97.3 F L Pulse Rate 69 Respiratory 20 Rate Blood Pressure 118/75 - Physical General Appearance: Yes: Nourished, Appropriately Dressed, Mild Distress HEENTM: Yes: Hearing grossly Normal, Normal ENT Inspection, Normocephalic, Normal Voice, Pharynx Normal Respiratory: Yes: Normal Breath Sounds, No Respiratory Distress Neck: Yes: No masses,lesions,Nodules, Supple Breast: Yes: Breast Exam Deferred Cardiology: Yes: Regular Rhythm, Regular Rate Abdominal: Yes: Flat, Soft Genitourinary: Yes: Within Normal Limits Back: Yes: Normal Inspection Musculoskeletal: Yes: full range of Motion, Gait Steady, Back pain, Muscle Pain Extremities: Yes: Normal Inspection, Normal Range of Motion Neurological: Yes: Alert, Normal Mood/Affect, Normal Response Integumentary: Yes: Normal Color, Warm, Track Kirkpatrick (bilateral antecubital space ) Lymphatic: Yes: Within Normal Limits - Diagnostic (1) Cannabis dependence Current Visit: Yes Status: Chronic (2) Opioid dependence with withdrawal Current Visit: Yes Status: Chronic (3) Asthma Current Visit: Yes Status: Chronic Qualifiers: Asthma severity: mild persistent Asthma complication type: with status asthmaticus Qualified Code(s): J45.32 - Mild persistent asthma with status asthmaticus (4) History of seizure Current Visit: Yes Status: Chronic (5) Cocaine dependence Current Visit: Yes Status: Chronic Qualifiers: Substance use status: uncomplicated Qualified Code(s): F14.20 - Cocaine dependence, uncomplicated Cleared for Admission [facility] - Detox or Rehab [facility] Level of Care: Medically Managed Detox Regimen/Protocol: Methadone [facility] Breath Alcohol Content Breath Alcohol Content: 0 Urine Pregancy Test - Result Urine Test Results: Negative- NO Line Present Urine Drug Screen - Results Drug Screen Negative: No Urine Drug Screen Results: THC-Marijuana, OPI-Opiates, TCA-Tricyclic Antidepress
[2016-08-13] MEDS ORDERED: ACETAMINOPHEN 325 MG TABLET (FP) PO PRN (13:43)
[2016-08-13] MEDS ORDERED: METHADONE HCL 10 MG TABLET (FOR DETOX USE ONLY) PO ONE ×2 (13:43→23:00)
[2016-08-13] MEDS ORDERED: guaiFENesin/D-METHORPHAN HB 10 ML UNIT-DOSE CUPS PO PRN (13:43)
[2016-08-13] MEDS ORDERED: LOPERAMIDE HCL 2 MG CAPSULE PO PRN (13:43)
[2016-08-13] MEDS ORDERED: MAGNESIUM HYDROX 2400MG/30ML ORAL SUSPENSION 30 ML CUP PO PRN (13:43)
[2016-08-13] MEDS ORDERED: IBUPROFEN 400 MG TABLET (FP) PO PRN (13:43)
[2016-08-13] MEDS ORDERED: P-EPHED 60MG/TRIPROLIDI 2.5MG TABLET PO PRN (13:43)
[2016-08-13] MEDS ORDERED: MAGNESIUM CITRATE 300 ML BOTTLE PO PRN (13:43)
[2016-08-13] MEDS ORDERED: hydrOXYzine PAMOATE 50 MG CAPSULE (FP) PO PRN (13:43)
[2016-08-13] MEDS ORDERED: diphenhydrAMINE HCL 50 MG CAPSULE PO PRN (13:43)
[2016-08-13] MEDS ORDERED: diazePAM 5 MG TABLET PO PRN (13:43)
[2016-08-13] MEDS ORDERED: MAG HYDROX/AL HYDROX/SIMETH 30 ML UNIT-DOSE CUP PO PRN (13:43)
[2016-08-13] MEDS ORDERED: MENTHOL/PHENOL 1 EACH UD MM PRN (13:43)
[2016-08-13] MEDS ORDERED: ALBUTEROL SO4 6.7 GM HFA INHALER IH PRN (13:45)
[2016-08-13] MEDS ORDERED: chlordiazePOXIDE HCL 25 MG CAPSULE PO PRN (15:41)
[2016-08-13] MEDS ORDERED: chlordiazePOXIDE HCL 25 MG CAPSULE PO ONE (15:41)
--- NOTE | 2016-08-13 15:43 | PN ---
[facility] Progress Note Note: patient would like to be on methadone and librium regimen
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
[2016-08-13] MEDS: chlordiazePOXIDE HCL 25 MG CAPSULE PO SCH ×2 (17:41→22:14)
[2016-08-13 21:39] LABS: URINE APPEARANCE CLEAR; URINE BILIRUBIN NEGATIVE (NEGATIVE); URINE BLOOD NEGATIVE (NEGATIVE); URINE COLOR DKYELLOW; URINE GLUCOSE (UA) NEGATIVE (NEGATIVE); URINE KETONE NEGATIVE (NEGATIVE); URINE LEUK ESTERASE NEGATIVE (NEGATIVE); URINE NITRITE NEGATIVE (NEGATIVE); URINE UROBILINOGEN 2.0 E.U/dl E.U./dl (0.2-1.0)
[2016-08-13 21:45] LABS: URINE PROTEIN 2+ (NEGATIVE)
[2016-08-13 21:50] LABS: URINE BACTERIA RARE /hpf (NONE SEEN); URINE MUCUS MANY; URINE RBC 3 /hpf (0-3); URINE WBC 3 /hpf (3-5)
[2016-08-13] MEDS: THIAMINE HCL 100 MG TABLET (FP) PO SCH (22:14)
[2016-08-13] MEDS: DIVALPROEX SODIUM 250 MG TABLET E.C. (FP) PO SCH (22:15)
[2016-08-13] MEDS: QUEtiapine FUMARATE 100 MG TABLET (FP) PO SCH (22:15)
[2016-08-14] MEDS: chlordiazePOXIDE HCL 25 MG CAPSULE PO SCH ×4 (05:25→22:16)
[2016-08-14] MEDS ORDERED: FLUCONAZOLE 50 MG TABLET PO ONE (09:29)
[2016-08-14] MEDS ORDERED: METHADONE HCL 10 MG TABLET (FOR DETOX USE ONLY) PO ONE (10:00)
[2016-08-14] MEDS: PRENATAL VITAMINS W/ FOLIC ACID TABLET (FP) PO SCH (10:16)
[2016-08-14] MEDS: DIVALPROEX SODIUM 250 MG TABLET E.C. (FP) PO SCH ×2 (10:16→22:16)
[2016-08-14] MEDS: cloNIDine HCL 0.1 MG TABLET PO SCH ×2 (10:18→22:16)
[2016-08-14] MEDS: ALBUTEROL SO4 6.7 GM HFA INHALER IH PRN (10:18)
[2016-08-14 10:32] LABS: MCH 28.1 pg (25.7-33.7); MCHC 34.2 g/dl (32.0-36.0); MEAN CELL VOLUME 82.1 fl (80-96); MEAN PLT VOLUME 9.4 fl (7.5-11.1); PLATELET COUNT 210 K/MM3 (134-434); RDW 16.5 % (11.6-15.6); WHITE BLOOD COUNT 9.2 K/mm3 (4.0-10.0)
[2016-08-14 10:51] LABS: ALBUMIN 3.7 g/dl (3.4-5.0); ALK PHOS 49 U/L (45-117); ANION GAP 7 (8-16); BILIRUBIN,TOTAL 0.6 mg/dL (0.2-1.0); CALCIUM 8.9 mg/dL (8.5-10.1); CO2 30 mmol/L (21-32); CREATININE 0.6 mg/dL (0.55-1.02); GLUCOSE,RANDOM 88 mg/dL (74-106); SGOT/AST 12 U/L (15-37); SGPT/ALT 19 U/L (12-78); TOT PROT 7.4 g/dl (6.4-8.2)
--- NOTE | 2016-08-14 11:17 | PN ---
[facility] CIWA - CIWA Score Nausea/Vomitin Muscle Tremors: 3 Anxiety: 3 Agitation: 2 Paroxysmal Sweats: 1-Minimal Palms Moist Orientation: 0-Oriented Tacttile Disturbances: 1-Very Mild Itch/Numbness Auditory Disturbances: 1-Very Mild Visual Disturbances: 1-Very Mild Sensitivity Headache: 2-Mild CIWA-Ar Total Score: 17 [facility] COWS - Scale Resting Pulse: 0= [place] 80 or Below Sweatin= Chills/Flushing Restless Observation: 3= Extraneous Movement Pupil Size: 1= Pupils >than Normal Bone or Joint Aches: 2= Severe Diffuse Aches Runny Nose/ Eye Tearin= Runny Nose/Eyes GI Upset > 30mins: 3= Vomiting/Diarrhea Tremor Observation of Outstretched Hands: 2= Slight Tremor Visible Yawning Observation: 1= 1-2x During Session Anxiety or Irritability: 2=Irritable/Anxious Goose Flesh Skin: 0=Smooth Skin COWS Score: 17 [facility] Progress Note (SOAP) Subjective: ALERT,IRRITABLE,ANXIOUS,INTERRUPTED SLEEP,TREMOR,PAIN IN THE BODY,COMPLAINING OF VAGINAL ITCHING FEAST INFECTION Objective: 08/14/16 11:14 Vital Signs Temperature 97.9 F 08/14/16 10:08 Pulse Rate 75 08/14/16 10:08 Respiratory Rate 18 08/14/16 10:08 Blood Pressure 111/58 08/14/16 10:08 O2 Sat by Pulse Oximetry (%) 08/14/16 11:15 EKG NSR,NORMAL ECG Laboratory Last Values WBC 9.2 K/mm3 (4.0-10.0) 08/14/16 07:50 RBC 4.56 M/mm3 (3.60-5.2) 08/14/16 07:50 Hgb 12.8 GM/dL (10.7-15.3) 08/14/16 07:50 Hct 37.5 % (32.4-45.2) 08/14/16 07:50 MCV 82.1 fl (80-96) 08/14/16 07:50 MCHC 34.2 g/dl (32.0-36.0) 08/14/16 07:50 RDW 16.5 % (11.6-15.6) H 08/14/16 07:50 Plt Count 210 K/MM3 (134-434) 08/14/16 07:50 MPV 9.4 fl (7.5-11.1) 08/14/16 07:50 Sodium 142 mmol/L (136-145) 08/14/16 07:50 Potassium 4.1 mmol/L (3.5-5.1) 08/14/16 07:50 Chloride 105 mmol/L (98-107) 08/14/16 07:50 Carbon Dioxide 30 mmol/L (21-32) 08/14/16 07:50 Anion Gap 7 (8-16) L 08/14/16 07:50 BUN 7 mg/dL (7-18) D 08/14/16 07:50 Creatinine 0.6 mg/dL (0.55-1.02) D 08/14/16 07:50 Creat Clearance w eGFR > 60 (>60) 08/14/16 07:50 Random Glucose 88 mg/dL (74-106) 08/14/16 07:50 Calcium 8.9 mg/dL (8.5-10.1) 08/14/16 07:50 Total Bilirubin 0.6 mg/dL (0.2-1.0) 08/14/16 07:50 AST 12 U/L (15-37) L D 08/14/16 07:50 ALT 19 U/L (12-78) D 08/14/16 07:50 Alkaline Phosphatase 49 U/L (45-117) 08/14/16 07:50 Total Protein 7.4 g/dl (6.4-8.2) 08/14/16 07:50 Albumin 3.7 g/dl (3.4-5.0) 08/14/16 07:50 Urine Color Dkyellow 08/13/16 Unknown Urine Appearance Clear 08/13/16 Unknown Urine pH 6.0 (5.0-8.0) 08/13/16 Unknown Ur Specific [place] 1.028 (1.001-1.035) 08/13/16 Unknown Urine Protein 2+ (NEGATIVE) H 08/13/16 Unknown Urine Glucose (UA) Negative (NEGATIVE) 08/13/16 Unknown Urine Ketones Negative (NEGATIVE) 08/13/16 Unknown Urine Blood Negative (NEGATIVE) 08/13/16 Unknown Urine Nitrite Negative (NEGATIVE) 08/13/16 Unknown Urine Bilirubin Negative (NEGATIVE) 08/13/16 Unknown Urine Urobilinogen 2.0 e.u/dl E.U./dl (0.2-1.0) H 08/13/16 Unknown Ur Leukocyte Esterase Negative (NEGATIVE) 08/13/16 Unknown Urine RBC 3 /hpf (0-3) 08/13/16 Unknown Urine WBC 3 /hpf (3-5) 08/13/16 Unknown Ur Epithelial Cells Moderate /hpf (FEW) 08/13/16 Unknown Urine Bacteria Rare /hpf (NONE SEEN) 08/13/16 Unknown Urine Mucus Many 08/13/16 Unknown Assessment: 08/14/16 11:16 WITHDRAWAL SYMPTOM Plan: CONTINUE DETOX,DIFLUCAN 150 MGS PO ONCE
[2016-08-14 11:30] LABS: HIV 1 & 2 AB NEGATIVE; HIV 1 AGp24 NEGATIVE
[2016-08-14] MEDS: QUEtiapine FUMARATE 100 MG TABLET (FP) PO SCH (22:16)
[2016-08-14] MEDS: THIAMINE HCL 100 MG TABLET (FP) PO SCH (22:55)
--- NOTE | 2016-08-15 00:13 | EKG ---
Test Reason : Blood Pressure : / mmHG Vent. Rate : 079 BPM Atrial Rate : 079 BPM P-R Int : 166 ms QRS Dur : 088 ms QT Int : 414 ms P-R-T Axes : 064 034 035 degrees QTc Int : 474 ms NORMAL SINUS RHYTHM NORMAL ECG WHEN COMPARED WITH ECG OF 30-MAY-2016 20:25, VENT. RATE HAS INCREASED BY 33 BPM Confirmed by MELANY UGALDE MD ([id number]) on 08/15/2016 12:13:30 AM Referred By: Confirmed By:MELANY UGALDE MD
[2016-08-15] MEDS: chlordiazePOXIDE HCL 25 MG CAPSULE PO SCH ×2 (05:45→10:06)
[2016-08-15] MEDS: CYCLOBENZAPRINE HCL 10 MG TABLET (FP) PO PRN ×2 (09:11→22:33)
[2016-08-15] MEDS ORDERED: ONDANSETRON *ODT* 4 MG TABLET SL ONE (09:51)
[2016-08-15] MEDS ORDERED: METHADONE HCL 5 MG TABLET (FOR DETOX USE ONLY) PO ONE (10:00)
[2016-08-15] MEDS: PRENATAL VITAMINS W/ FOLIC ACID TABLET (FP) PO SCH (10:06)
[2016-08-15] MEDS: DIVALPROEX SODIUM 250 MG TABLET E.C. (FP) PO SCH ×2 (10:06→22:21)
[2016-08-15] MEDS: cloNIDine HCL 0.1 MG TABLET PO SCH ×2 (10:06→22:21)
--- NOTE | 2016-08-15 11:07 | PN ---
[facility] CIWA - CIWA Score Nausea/Vomitin-Int. Nausea w/Dry Heave Muscle Tremors: 2 Anxiety: 3 Agitation: 3 Paroxysmal Sweats: 3 Orientation: 0-Oriented Tacttile Disturbances: 2-Mild Itch/Numbness/Burn Auditory Disturbances: 0-None Visual Disturbances: 0-None Headache: 0-None Present CIWA-Ar Total Score: 17 S COWS - Scale Resting Pulse: 0= [place] 80 or Below Sweatin=Flushed/Facial Moisture Restless Observation: 1= Difficult to Sit Still Pupil Size: 1= Pupils >than Normal Bone or Joint Aches: 2= Severe Diffuse Aches Runny Nose/ Eye Tearin= Nasal Congestion GI Upset > 30mins: 1= Stomach Cramp Tremor Observation of Outstretched Hands: 2= Slight Tremor Visible Yawning Observation: 0= None Anxiety or Irritability: 2=Irritable/Anxious Goose Flesh Skin: 0=Smooth Skin COWS Score: 12 [facility] Progress Note (SOAP) Subjective: interrupted sleep, sweats, shakes , achy Objective: 08/15/16 11:06 Assessment: 08/15/16 11:05 Vital Signs Temperature 97.1 F L 08/15/16 09:58 Pulse Rate 60 08/15/16 09:58 Respiratory Rate 18 08/15/16 09:58 Blood Pressure 117/70 08/15/16 09:58 O2 Sat by Pulse Oximetry (%) Laboratory Tests 08/13/16 08/14/16 08/14/16 Unknown 07:50 07:50 WBC 9.2 RBC 4.56 Hgb 12.8 Hct 37.5 MCV 82.1 MCHC 34.2 RDW 16.5 H Plt Count 210 MPV 9.4 Sodium 142 Potassium 4.1 Chloride 105 Carbon Dioxide 30 Anion Gap 7 L BUN 7 D Creatinine 0.6 D Creat Clearance w eGFR > 60 Random Glucose 88 Calcium 8.9 Total Bilirubin 0.6 AST 12 L D ALT 19 D Alkaline Phosphatase 49 Total Protein 7.4 Albumin 3.7 Urine Color Dkyellow Urine Appearance Clear Urine pH 6.0 Ur Specific [place] 1.028 Urine Protein 2+ H Urine Glucose (UA) Negative Urine Ketones Negative Urine Blood Negative Urine Nitrite Negative Urine Bilirubin Negative Urine Urobilinogen 2.0 e.u/dl H Ur Leukocyte Esterase Negative Urine RBC 3 Urine WBC 3 Ur Epithelial Cells Moderate Urine Bacteria Rare Urine Mucus Many Valproic Acid RPR Titer HIV 1&2 Antibody Screen HIV P24 Antigen 08/14/16 08/14/16 08/14/16 07:50 07:50 07:50 WBC RBC Hgb Hct MCV MCHC RDW Plt Count MPV Sodium Potassium Chloride Carbon Dioxide Anion Gap BUN Creatinine Creat Clearance w eGFR Random Glucose Calcium Total Bilirubin AST ALT Alkaline Phosphatase Total Protein Albumin Urine Color Urine Appearance Urine pH Ur Specific [place] Urine Protein Urine Glucose (UA) Urine Ketones Urine Blood Urine Nitrite Urine Bilirubin Urine Urobilinogen Ur Leukocyte Esterase Urine RBC Urine WBC Ur Epithelial Cells Urine Bacteria Urine Mucus Valproic Acid < 3.000 L RPR Titer Nonreactive HIV 1&2 Antibody Screen Negative HIV P24 Antigen Negative pt aox3 in nad ambulating 08/15/16 11:06 Plan: withdrawal sx's cont ddetox increase fluids zofran prn
[2016-08-15] MEDS: chlordiazePOXIDE 5 MG CAPSULE PO SCH ×2 (17:29→22:21)
[2016-08-15] MEDS ORDERED: ZOLPIDEM TARTRATE 10 MG TABLET (PARK CARE ONLY) PO PRN (22:00)
[2016-08-15] MEDS: THIAMINE HCL 100 MG TABLET (FP) PO SCH (22:21)
[2016-08-15] MEDS: QUEtiapine FUMARATE 100 MG TABLET (FP) PO SCH (22:21)
[2016-08-15 22:30] VITALS: BP 115/64; PULSE 70; TEMP 97.7
[2016-08-15] MEDS: ALBUTEROL SO4 6.7 GM HFA INHALER IH PRN (22:33)
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
[2016-08-16] MEDS ORDERED: METHADONE HCL 5 MG TABLET (FOR DETOX USE ONLY) PO ONE (10:00)
[2016-08-16] MEDS ORDERED: chlordiazePOXIDE HCL 10 MG CAPSULE PO SCH (17:00)
[2016-08-17] MEDS ORDERED: METHADONE HCL 10 MG TABLET (FOR DETOX USE ONLY) PO ONE (10:00)
[2016-08-18] MEDS ORDERED: METHADONE HCL 5 MG TABLET (FOR DETOX USE ONLY) PO ONE (06:00)
--- NOTE | 2016-09-13 14:57 | DS ---
[facility] Detox Discharge Summary Admission Date: 08/13/16 Discharge Date: 08/15/16 - History Present History: Cannabis Dependence, Cocaine Dependence, Opioid Dependence, Sedative Dependence - Physical Exam Results Vital Signs: Vital Signs Temperature 97.7 F 08/15/16 22:00 Pulse Rate 70 08/15/16 22:00 Respiratory Rate 18 08/15/16 22:00 Blood Pressure 115/64 08/15/16 22:00 O2 Sat by Pulse Oximetry (%) - Treatment Hospital Course: Detox Protocol Followed, Detoxed Safely - Medication Discharge Medications: Ambulatory Orders Albuterol Sulfate Inhaler - [Ventolin Hfa Inhaler -] 1 - 2 inh PO QID 05/30/16 Divalproex [Depakote -] 250 mg PO BID #30 tablet.ec 05/31/16 Quetiapine Fumarate [Seroquel] 100 mg PO HS #30 tablet 05/31/16 - AMA Did Patient Leave Against Medical Advice: No (was threatrhening to harm herself and transfer to [facility] . )
== END 2016-08-15 23:55 | disposition short-term general hospital (02) | DRG 773 ==
LOC: YASAS 12:40 → Y6N 14:33
PROVIDERS: ADMIT Internal Medicine; ATTEND Internal Medicine Addiction Medicine
PROC: HZ2ZZZZ Detoxification Services for Substance Abuse Treatment (ICD-10-PCS; principal; 2016-08-15)
DX: F11.23 Opioid dependence with withdrawal (principal); F12.20 Cannabis dependence, uncomplicated; F17.210 Nicotine dependence, cigarettes, uncomplicated; F19.24 Other psychoactive substance dependence with psychoactive substance-induced mood disorder; G47.00 Insomnia, unspecified; J45.32 Mild persistent asthma with status asthmaticus; K21.9 Gastro-esophageal reflux disease without esophagitis; Z86.69 Personal history of other diseases of the nervous system and sense organs; R63.4 Abnormal weight loss; Z68.20 Body mass index [BMI] 20.0-20.9, adult
CPT/HCPCS: 36415; 80053; 80164; 81003; 81015; 85027; 86593; 87389; 93005; 93010

== ENCOUNTER 2020-08-11 14:46 | Inpatient (IN) | payer OTHER ==
[2020-08-11 16:36] VITALS: BMI 34.6
[2020-08-11] MEDS ORDERED: DOXYCYCLINE HYCLATE 100 MG CAPSULE PO SCH (18:00)
[2020-08-11] MEDS ORDERED: MAG HYDROX/AL HYDROX/SIMETH 30 ML UNIT-DOSE CUP PO PRN (18:01)
[2020-08-11] MEDS ORDERED: METHOCARBAMOL 500 MG TABLET PO PRN (18:01)
[2020-08-11] MEDS ORDERED: NALOXONE HCL 0.4 MG/ML VIAL IM PRN (18:01)
[2020-08-11] MEDS ORDERED: ACETAMINOPHEN 325 MG TABLET (FP) PO PRN (18:01)
[2020-08-11] MEDS ORDERED: ONDANSETRON *ODT* 4 MG TABLET SL PRN (18:01)
[2020-08-11] MEDS ORDERED: MENTHOL/PHENOL 1 EACH UD MM PRN (18:01)
[2020-08-11] MEDS ORDERED: NICOTINE POLACRILEX 2 MG GUM BUC PRN (18:01)
[2020-08-11] MEDS ORDERED: MAGNESIUM CITRATE 300 ML BOTTLE PO PRN (18:01)
[2020-08-11] MEDS ORDERED: BISMUTH SUBSALICYLATE 524 MG/30 ML UD PO PRN (18:01)
[2020-08-11] MEDS ORDERED: DICYCLOMINE HCL 10 MG CAPSULE PO PRN (18:01)
[2020-08-11] MEDS ORDERED: diazePAM 5 MG TABLET PO PRN (18:01)
[2020-08-11] MEDS ORDERED: MAGNESIUM HYDROX 2400MG/30ML ORAL SUSPENSION 30 ML CUP PO PRN (18:01)
[2020-08-11] MEDS ORDERED: ARTIFICIAL TEARS (POLYVINYL ALCOHOL) OPTH DROPS OU PRN (18:11)
[2020-08-11] MEDS ORDERED: ALBUTEROL SO4 HFA INHALER IH PRN ×2 (18:12→18:34)
[2020-08-11] MEDS: THIAMINE HCL 100 MG TABLET (FP) PO SCH (22:27)
[2020-08-11] MEDS: hydrOXYzine PAMOATE 25 MG CAPSULE (FP) PO PRN (22:28)
[2020-08-11] MEDS: diazePAM 5 MG TABLET PO SCH (22:28)
[2020-08-11] MEDS: MELATONIN 5 MG TABLETS PO SCH (22:28)
[2020-08-11] MEDS: DOXYCYCLINE HYCLATE 100 MG CAPSULE PO SCH (23:57)
[2020-08-12] MEDS: diazePAM 5 MG TABLET PO SCH ×4 (06:06→22:08)
[2020-08-12] MEDS: IBUPROFEN 400 MG TABLET (FP) PO PRN (06:14)
[2020-08-12] MEDS ORDERED: ALBUTEROL SO4 HFA INHALER IH PRN (08:58)
[2020-08-12] MEDS ORDERED: ALBUTEROL SO4 0.083% IH SOL 2.5 MG/3 ML VIAL.NEB. NEB PRN ×2 (08:59→09:55)
[2020-08-12] MEDS ORDERED: cloNIDine HCL 0.1 MG TABLET PO PRN (09:13)
[2020-08-12] MEDS ORDERED: METHADONE HCL 10 MG TABLET PO ONE ×2 (10:00)
[2020-08-12] MEDS ORDERED: METHADONE 80 MG, METHADONE 30 MG PO ONE (10:00)
[2020-08-12 10:08] LABS: HEMATOCRIT 31.3 % (32.4-45.2); HEMOGLOBIN 10.7 GM/dL (10.7-15.3); MCH 27.1 pg (25.7-33.7); MCHC 34.2 g/dl (32.0-36.0); MEAN CELL VOLUME 79.3 fl (80-96); PLATELET COUNT 243 K/MM3 (134-434); RBC 3.95 M/mm3 (3.60-5.2); RDW 16.5 % (11.6-15.6); WHITE BLOOD COUNT 6.9 K/mm3 (4.0-10.0)
[2020-08-12] MEDS ORDERED: METHADONE HCL 40 MG DISPERSABLE TABLET ONE (10:08)
[2020-08-12] MEDS ORDERED: METHADONE HCL 10 MG TABLET ONE (10:08)
[2020-08-12] MEDS: PRENATAL VITAMINS W/ FOLIC ACID TABLET (FP) PO SCH (10:10)
[2020-08-12] MEDS: NICOTINE 21 MG/24 HOURS TOPICAL PATCH TD SCH (10:13)
[2020-08-12 10:22] LABS: CALCIUM 8.9 mg/dL (8.5-10.1)
[2020-08-12 10:23] LABS: ALBUMIN 2.9 g/dl (3.4-5.0); BLOOD UREA NITROGEN 12.1 mg/dL (7-18)
[2020-08-12 10:26] LABS: CREATININE 0.8 mg/dL (0.55-1.3)
[2020-08-12 10:28] LABS: BILIRUBIN,TOTAL 0.5 mg/dL (0.2-1); TOT PROT 6.3 g/dl (6.4-8.2)
[2020-08-12] MEDS: DOXYCYCLINE HYCLATE 100 MG CAPSULE PO SCH ×2 (12:20→17:22)
[2020-08-12] MEDS: hydrOXYzine PAMOATE 25 MG CAPSULE (FP) PO PRN (13:33)
[2020-08-12] MEDS: QUEtiapine FUMARATE 100 MG TABLET (FP) PO SCH (22:07)
[2020-08-12] MEDS: MELATONIN 5 MG TABLETS PO SCH (22:07)
[2020-08-12] MEDS: THIAMINE HCL 100 MG TABLET (FP) PO SCH (22:10)
[2020-08-13] MEDS ORDERED: METHADONE HCL 40 MG DISPERSABLE TABLET ONE (04:42)
[2020-08-13] MEDS ORDERED: METHADONE HCL 10 MG TABLET ONE (04:42)
[2020-08-13] MEDS ORDERED: METHADONE HCL 10 MG TABLET PO SCH (06:00)
[2020-08-13] MEDS: IBUPROFEN 400 MG TABLET (FP) PO PRN ×2 (06:06→15:40)
[2020-08-13] MEDS: hydrOXYzine PAMOATE 25 MG CAPSULE (FP) PO PRN ×3 (06:06→15:41)
[2020-08-13] MEDS: diazePAM 5 MG TABLET PO SCH ×3 (06:07→22:19)
[2020-08-13] MEDS: METHADONE 80 MG, METHADONE 30 MG PO SCH (06:07)
[2020-08-13] MEDS: NICOTINE 21 MG/24 HOURS TOPICAL PATCH TD SCH (10:15)
[2020-08-13] MEDS: PRENATAL VITAMINS W/ FOLIC ACID TABLET (FP) PO SCH (10:15)
[2020-08-13] MEDS: DOXYCYCLINE HYCLATE 100 MG CAPSULE PO SCH ×2 (10:15→17:45)
[2020-08-13] MEDS: ACETAMINOPHEN 325 MG TABLET (FP) PO PRN ×2 (10:17→17:47)
[2020-08-13] MEDS: THIAMINE HCL 100 MG TABLET (FP) PO SCH (22:19)
[2020-08-13] MEDS: QUEtiapine FUMARATE 100 MG TABLET (FP) PO SCH (22:20)
[2020-08-13] MEDS: MELATONIN 5 MG TABLETS PO SCH (22:20)
[2020-08-14] MEDS ORDERED: METHADONE HCL 40 MG DISPERSABLE TABLET ONE (03:23)
[2020-08-14] MEDS ORDERED: METHADONE HCL 10 MG TABLET ONE (03:23)
[2020-08-14 06:06] LABS: SARS-CoV-2 NAA Not Detected (Not Detected)
[2020-08-14] MEDS: METHADONE 80 MG, METHADONE 30 MG PO SCH (06:34)
[2020-08-14] MEDS: hydrOXYzine PAMOATE 25 MG CAPSULE (FP) PO PRN (06:35)
[2020-08-14] MEDS: diazePAM 5 MG TABLET PO SCH ×2 (06:35→18:18)
[2020-08-14] MEDS: IBUPROFEN 400 MG TABLET (FP) PO PRN ×3 (06:36→22:21)
[2020-08-14] MEDS: PRENATAL VITAMINS W/ FOLIC ACID TABLET (FP) PO SCH (10:04)
[2020-08-14] MEDS: NICOTINE 21 MG/24 HOURS TOPICAL PATCH TD SCH (10:04)
[2020-08-14] MEDS: DOXYCYCLINE HYCLATE 100 MG CAPSULE PO SCH ×2 (10:04→18:19)
[2020-08-14] MEDS: ACETAMINOPHEN 325 MG TABLET (FP) PO PRN ×2 (10:04→18:28)
[2020-08-14] MEDS ORDERED: BISACODYL 5 MG TABLET.DR (FP) PO ONE (13:00)
[2020-08-14] MEDS: hydrOXYzine PAMOATE 50 MG CAPSULE (FP) PO PRN ×3 (14:24→22:20)
[2020-08-14] MEDS: THIAMINE HCL 100 MG TABLET (FP) PO SCH (22:21)
[2020-08-14] MEDS: QUEtiapine FUMARATE 100 MG TABLET (FP) PO SCH (22:21)
[2020-08-14] MEDS ORDERED: SUVOREXANT 10 MG TABLET PO PRN (22:32)
[2020-08-15] MEDS: MELATONIN 5 MG TABLETS PO SCH (00:06)
[2020-08-15] MEDS ORDERED: METHADONE HCL 10 MG TABLET ONE (03:30)
[2020-08-15] MEDS ORDERED: METHADONE HCL 40 MG DISPERSABLE TABLET ONE (03:31)
[2020-08-15] MEDS ORDERED: diazePAM 5 MG TABLET PO ONE (06:00)
[2020-08-15] MEDS: METHADONE 80 MG, METHADONE 30 MG PO SCH (06:04)
[2020-08-15] MEDS: PRENATAL VITAMINS W/ FOLIC ACID TABLET (FP) PO SCH (10:11)
[2020-08-15] MEDS: DOXYCYCLINE HYCLATE 100 MG CAPSULE PO SCH (10:12)
[2020-08-15] MEDS: NICOTINE 21 MG/24 HOURS TOPICAL PATCH TD SCH (10:13)
[2020-08-15 10:26] VITALS: BP 117/59; PULSE 84; TEMP 97.1
== END 2020-08-15 12:26 | disposition other institution (70) | DRG 773 ==
LOC: YASAS 14:46 → Y6N 17:45
PROVIDERS: ADMIT Allergy & Immunology; ATTEND Allergy & Immunology
PROC: HZ2ZZZZ Detoxification Services for Substance Abuse Treatment (ICD-10-PCS; principal; 2020-08-11)
DX: F10.230 Alcohol dependence with withdrawal, uncomplicated (principal); F11.23 Opioid dependence with withdrawal; F13.230 Sedative, hypnotic or anxiolytic dependence with withdrawal, uncomplicated; F12.20 Cannabis dependence, uncomplicated; F17.210 Nicotine dependence, cigarettes, uncomplicated; F31.81 Bipolar II disorder; F19.282 Other psychoactive substance dependence with psychoactive substance-induced sleep disorder; F19.24 Other psychoactive substance dependence with psychoactive substance-induced mood disorder; F43.10 Post-traumatic stress disorder, unspecified; I10 Essential (primary) hypertension; J45.20 Mild intermittent asthma, uncomplicated; G43.909 Migraine, unspecified, not intractable, without status migrainosus; K21.9 Gastro-esophageal reflux disease without esophagitis; M54.5 Low back pain; Z62.810 Personal history of physical and sexual abuse in childhood; Z91.410 Personal history of adult physical and sexual abuse
CPT/HCPCS: 36415; 80053; 81025; 85027; 86780; 93005; 93010; C9803; U0003; U0005

== ENCOUNTER 2020-08-15 12:51 | Inpatient (IN) | payer OTHER ==
[2020-08-15] MEDS ORDERED: hydrOXYzine PAMOATE 25 MG CAPSULE (FP) PO PRN (13:39)
[2020-08-15] MEDS ORDERED: guaiFENesin 200 MG/10 ML 10 ML UNIT-DOSE CUPS PO PRN (13:39)
[2020-08-15] MEDS ORDERED: MAGNESIUM HYDROX 2400MG/30ML ORAL SUSPENSION 30 ML CUP PO PRN (13:39)
[2020-08-15] MEDS ORDERED: MENTHOL/PHENOL 1 EACH UD MM PRN (13:39)
[2020-08-15] MEDS ORDERED: LOPERAMIDE HCL 2 MG CAPSULE PO PRN (13:39)
[2020-08-15] MEDS ORDERED: P-EPHED 60MG/TRIPROLIDI 2.5MG TABLET PO PRN (13:39)
[2020-08-15] MEDS ORDERED: MAG HYDROX/AL HYDROX/SIMETH 30 ML UNIT-DOSE CUP PO PRN (13:39)
[2020-08-15] MEDS ORDERED: MAGNESIUM CITRATE 300 ML BOTTLE PO PRN (13:39)
[2020-08-15] MEDS: IBUPROFEN 400 MG TABLET (FP) PO PRN (17:20)
[2020-08-15] MEDS: hydrOXYzine PAMOATE 25 MG CAPSULE (FP) PO PRN (18:51)
[2020-08-15] MEDS: METHOCARBAMOL 500 MG TABLET PO PRN (18:51)
[2020-08-15] MEDS: QUEtiapine FUMARATE 100 MG TABLET (FP) PO SCH (21:17)
[2020-08-15] MEDS: THIAMINE HCL 100 MG TABLET (FP) PO SCH (21:17)
[2020-08-15] MEDS: MELATONIN 5 MG TABLETS PO SCH (21:19)
[2020-08-15] MEDS: SUVOREXANT 10 MG TABLET PO PRN (22:04)
[2020-08-16] MEDS ORDERED: METHADONE HCL 10 MG TABLET PO ONE (06:00)
[2020-08-16] MEDS ORDERED: METHADONE HCL 40 MG DISPERSABLE TABLET ONE (06:03)
[2020-08-16] MEDS ORDERED: METHADONE HCL 10 MG TABLET ONE (06:03)
[2020-08-16] MEDS: hydrOXYzine PAMOATE 25 MG CAPSULE (FP) PO PRN ×2 (06:47→15:58)
[2020-08-16] MEDS: ACETAMINOPHEN 325 MG TABLET (FP) PO PRN (06:47)
[2020-08-16] MEDS: METHADONE 80 MG, METHADONE 30 MG PO SCH (06:48)
[2020-08-16] MEDS: METHOCARBAMOL 500 MG TABLET PO PRN ×3 (06:48→22:10)
[2020-08-16] MEDS: PRENATAL VITAMINS W/ FOLIC ACID TABLET (FP) PO SCH (10:00)
[2020-08-16] MEDS: NICOTINE 21 MG/24 HOURS TOPICAL PATCH TD SCH (10:00)
[2020-08-16] MEDS: IBUPROFEN 400 MG TABLET (FP) PO PRN (10:01)
[2020-08-16 11:43] LABS: HIV INTERPRETATION NEGATIVE (NEGATIVE)
[2020-08-16] MEDS ORDERED: PNEUMOC 13-VAL CONJ-DIP CRM/PF 0.5 ML DISP.SYRIN IM ONE (12:00)
[2020-08-16] MEDS ORDERED: SODIUM PHOSPHATE/NA BIPHOS 133 ML ENEMA RC ONE (16:00)
[2020-08-16] MEDS ORDERED: MASKS NR ONE (17:11)
[2020-08-16] MEDS: QUEtiapine FUMARATE 100 MG TABLET (FP) PO SCH (22:08)
[2020-08-16] MEDS: THIAMINE HCL 100 MG TABLET (FP) PO SCH (22:08)
[2020-08-16] MEDS: MELATONIN 5 MG TABLETS PO SCH (22:08)
[2020-08-16] MEDS: SUVOREXANT 10 MG TABLET PO PRN (22:09)
[2020-08-17] MEDS ORDERED: METHADONE HCL 10 MG TABLET ONE (06:26)
[2020-08-17] MEDS ORDERED: METHADONE HCL 40 MG DISPERSABLE TABLET ONE (06:26)
[2020-08-17] MEDS: IBUPROFEN 400 MG TABLET (FP) PO PRN ×2 (06:27→17:44)
[2020-08-17] MEDS: hydrOXYzine PAMOATE 25 MG CAPSULE (FP) PO PRN ×2 (06:27→17:43)
[2020-08-17] MEDS: METHADONE 80 MG, METHADONE 30 MG PO SCH (06:28)
[2020-08-17] MEDS: METHOCARBAMOL 500 MG TABLET PO PRN ×2 (06:28→17:43)
[2020-08-17] MEDS: PRENATAL VITAMINS W/ FOLIC ACID TABLET (FP) PO SCH (10:09)
[2020-08-17] MEDS: NICOTINE 21 MG/24 HOURS TOPICAL PATCH TD SCH (10:09)
[2020-08-17] MEDS: ACETAMINOPHEN 325 MG TABLET (FP) PO PRN ×2 (10:10→21:23)
[2020-08-17] MEDS: NICOTINE POLACRILEX 2 MG GUM BUC PRN ×2 (10:12→17:45)
[2020-08-17] MEDS: COLLOIDAL OATMEAL 1 BAR EACH TP PRN (17:43)
[2020-08-17] MEDS: QUEtiapine FUMARATE 100 MG TABLET (FP) PO SCH (21:21)
[2020-08-17] MEDS: SUVOREXANT 10 MG TABLET PO PRN (21:21)
[2020-08-17] MEDS: DOCUSATE SODIUM 100 MG CAPSULE (FP) PO SCH (21:21)
[2020-08-17] MEDS: THIAMINE HCL 100 MG TABLET (FP) PO SCH (21:21)
[2020-08-17] MEDS: MELATONIN 5 MG TABLETS PO SCH (21:31)
[2020-08-18] MEDS ORDERED: METHADONE HCL 40 MG DISPERSABLE TABLET ONE (03:36)
[2020-08-18] MEDS ORDERED: METHADONE HCL 10 MG TABLET ONE (03:36)
[2020-08-18] MEDS: METHADONE 80 MG, METHADONE 30 MG PO SCH (06:42)
[2020-08-18] MEDS: IBUPROFEN 400 MG TABLET (FP) PO PRN (06:42)
[2020-08-18] MEDS: hydrOXYzine PAMOATE 25 MG CAPSULE (FP) PO PRN ×2 (06:42→21:46)
[2020-08-18] MEDS: PRENATAL VITAMINS W/ FOLIC ACID TABLET (FP) PO SCH (10:08)
[2020-08-18] MEDS: NICOTINE 21 MG/24 HOURS TOPICAL PATCH TD SCH (10:08)
[2020-08-18] MEDS: METHOCARBAMOL 500 MG TABLET PO PRN ×2 (10:09→21:46)
[2020-08-18] MEDS: NICOTINE POLACRILEX 2 MG GUM BUC PRN ×3 (10:10→21:47)
[2020-08-18 14:07] LABS: SARS-CoV-2 NAA Not Detected (Not Detected)
[2020-08-18] MEDS: THIAMINE HCL 100 MG TABLET (FP) PO SCH (21:41)
[2020-08-18] MEDS: MELATONIN 5 MG TABLETS PO SCH (21:41)
[2020-08-18] MEDS: DOCUSATE SODIUM 100 MG CAPSULE (FP) PO SCH (21:41)
[2020-08-18] MEDS: QUEtiapine FUMARATE 100 MG TABLET (FP) PO SCH (21:41)
[2020-08-18] MEDS: SUVOREXANT 10 MG TABLET PO PRN (21:46)
[2020-08-19] MEDS ORDERED: METHADONE HCL 40 MG DISPERSABLE TABLET ONE (05:49)
[2020-08-19] MEDS ORDERED: METHADONE HCL 10 MG TABLET ONE (05:49)
[2020-08-19] MEDS: METHADONE 80 MG, METHADONE 30 MG PO SCH (07:13)
[2020-08-19] MEDS: NICOTINE POLACRILEX 2 MG GUM BUC PRN ×3 (07:27→20:05)
[2020-08-19] MEDS: PRENATAL VITAMINS W/ FOLIC ACID TABLET (FP) PO SCH (10:28)
[2020-08-19] MEDS: NICOTINE 21 MG/24 HOURS TOPICAL PATCH TD SCH (10:28)
[2020-08-19] MEDS: hydrOXYzine PAMOATE 25 MG CAPSULE (FP) PO PRN ×2 (10:29→21:16)
[2020-08-19] MEDS: METHOCARBAMOL 500 MG TABLET PO PRN ×2 (10:30→21:16)
[2020-08-19] MEDS: ACETAMINOPHEN 325 MG TABLET (FP) PO PRN (10:30)
[2020-08-19] MEDS: THIAMINE HCL 100 MG TABLET (FP) PO SCH (21:16)
[2020-08-19] MEDS: DOCUSATE SODIUM 100 MG CAPSULE (FP) PO SCH (21:16)
[2020-08-19] MEDS: MELATONIN 5 MG TABLETS PO SCH (21:16)
[2020-08-19] MEDS: QUEtiapine FUMARATE 100 MG TABLET (FP) PO SCH (21:16)
[2020-08-20] MEDS ORDERED: METHADONE HCL 10 MG TABLET ONE (09:41)
[2020-08-20] MEDS ORDERED: METHADONE HCL 40 MG DISPERSABLE TABLET ONE (09:42)
[2020-08-20] MEDS: NICOTINE POLACRILEX 2 MG GUM BUC PRN ×3 (10:16→22:03)
[2020-08-20] MEDS: NICOTINE 21 MG/24 HOURS TOPICAL PATCH TD SCH (10:16)
[2020-08-20] MEDS: PRENATAL VITAMINS W/ FOLIC ACID TABLET (FP) PO SCH (10:16)
[2020-08-20] MEDS: METHADONE 80 MG, METHADONE 30 MG PO SCH (10:17)
[2020-08-20] MEDS: ACETAMINOPHEN 325 MG TABLET (FP) PO PRN (10:18)
[2020-08-20] MEDS: ARTIFICIAL TEARS (POLYVINYL ALCOHOL) OPTH DROPS OU PRN ×2 (14:07→22:00)
[2020-08-20] MEDS: METHOCARBAMOL 500 MG TABLET PO PRN ×2 (14:08→22:00)
[2020-08-20] MEDS: hydrOXYzine PAMOATE 25 MG CAPSULE (FP) PO PRN ×2 (14:08→22:00)
[2020-08-20] MEDS: DOCUSATE SODIUM 100 MG CAPSULE (FP) PO SCH (22:00)
[2020-08-20] MEDS: MELATONIN 5 MG TABLETS PO SCH (22:01)
[2020-08-20] MEDS: THIAMINE HCL 100 MG TABLET (FP) PO SCH (22:01)
[2020-08-20] MEDS: QUEtiapine FUMARATE 100 MG TABLET (FP) PO SCH (22:01)
[2020-08-20] MEDS: SUVOREXANT 10 MG TABLET PO PRN (22:02)
[2020-08-21] MEDS ORDERED: METHADONE HCL 10 MG TABLET ONE (09:10)
[2020-08-21] MEDS ORDERED: METHADONE HCL 40 MG DISPERSABLE TABLET ONE (09:10)
[2020-08-21] MEDS: NICOTINE POLACRILEX 2 MG GUM BUC PRN ×2 (10:35→22:28)
[2020-08-21] MEDS: hydrOXYzine PAMOATE 25 MG CAPSULE (FP) PO PRN ×2 (10:36→22:26)
[2020-08-21] MEDS: METHADONE 80 MG, METHADONE 30 MG PO SCH (10:36)
[2020-08-21] MEDS: PRENATAL VITAMINS W/ FOLIC ACID TABLET (FP) PO SCH (10:37)
[2020-08-21] MEDS: METHOCARBAMOL 500 MG TABLET PO PRN ×2 (10:37→22:26)
[2020-08-21] MEDS: NICOTINE 21 MG/24 HOURS TOPICAL PATCH TD SCH (10:39)
[2020-08-21] MEDS: MELATONIN 5 MG TABLETS PO SCH (22:25)
[2020-08-21] MEDS: DOCUSATE SODIUM 100 MG CAPSULE (FP) PO SCH (22:26)
[2020-08-21] MEDS: QUEtiapine FUMARATE 100 MG TABLET (FP) PO SCH (22:26)
[2020-08-21] MEDS: THIAMINE HCL 100 MG TABLET (FP) PO SCH (22:26)
[2020-08-21] MEDS: SUVOREXANT 10 MG TABLET PO PRN (22:27)
[2020-08-22] MEDS ORDERED: MASKS NR ONE (06:30)
[2020-08-22] MEDS ORDERED: METHADONE HCL 10 MG TABLET ONE (08:48)
[2020-08-22] MEDS ORDERED: METHADONE HCL 40 MG DISPERSABLE TABLET ONE (08:49)
[2020-08-22] MEDS: NICOTINE 21 MG/24 HOURS TOPICAL PATCH TD SCH (10:34)
[2020-08-22] MEDS: METHOCARBAMOL 500 MG TABLET PO PRN ×2 (10:35→21:28)
[2020-08-22] MEDS: NICOTINE POLACRILEX 2 MG GUM BUC PRN ×3 (10:36→20:09)
[2020-08-22] MEDS: PRENATAL VITAMINS W/ FOLIC ACID TABLET (FP) PO SCH (10:36)
[2020-08-22] MEDS: METHADONE 80 MG, METHADONE 30 MG PO SCH (10:37)
[2020-08-22] MEDS: IBUPROFEN 400 MG TABLET (FP) PO PRN (10:39)
[2020-08-22] MEDS: ARTIFICIAL TEARS (POLYVINYL ALCOHOL) OPTH DROPS OU PRN ×2 (10:40→21:32)
[2020-08-22] MEDS: hydrOXYzine PAMOATE 25 MG CAPSULE (FP) PO PRN (14:22)
[2020-08-22] MEDS: DOCUSATE SODIUM 100 MG CAPSULE (FP) PO SCH (21:26)
[2020-08-22] MEDS: QUEtiapine FUMARATE 100 MG TABLET (FP) PO SCH (21:26)
[2020-08-22] MEDS: MELATONIN 5 MG TABLETS PO SCH (21:27)
[2020-08-22] MEDS: SUVOREXANT 10 MG TABLET PO PRN (21:28)
[2020-08-22] MEDS: THIAMINE HCL 100 MG TABLET (FP) PO SCH (21:31)
[2020-08-22] MEDS ORDERED: PT OWN MED DRAWER 7, Y5N ONE (21:32)
[2020-08-23] MEDS ORDERED: METHADONE HCL 10 MG TABLET ONE (08:44)
[2020-08-23] MEDS ORDERED: METHADONE HCL 40 MG DISPERSABLE TABLET ONE (08:45)
[2020-08-23] MEDS: PRENATAL VITAMINS W/ FOLIC ACID TABLET (FP) PO SCH (10:01)
[2020-08-23] MEDS: METHADONE 80 MG, METHADONE 30 MG PO SCH (10:01)
[2020-08-23] MEDS: NICOTINE 21 MG/24 HOURS TOPICAL PATCH TD SCH (10:02)
[2020-08-23] MEDS: METHOCARBAMOL 500 MG TABLET PO PRN ×2 (10:02→21:37)
[2020-08-23] MEDS: NICOTINE POLACRILEX 2 MG GUM BUC PRN ×3 (10:02→21:40)
[2020-08-23] MEDS: ARTIFICIAL TEARS (POLYVINYL ALCOHOL) OPTH DROPS OU PRN ×2 (10:04→21:40)
[2020-08-23] MEDS: hydrOXYzine PAMOATE 25 MG CAPSULE (FP) PO PRN (16:54)
[2020-08-23] MEDS: DOCUSATE SODIUM 100 MG CAPSULE (FP) PO SCH (21:35)
[2020-08-23] MEDS: MELATONIN 5 MG TABLETS PO SCH (21:36)
[2020-08-23] MEDS: THIAMINE HCL 100 MG TABLET (FP) PO SCH (21:36)
[2020-08-23] MEDS: QUEtiapine FUMARATE 100 MG TABLET (FP) PO SCH (21:36)
[2020-08-23] MEDS ORDERED: PT OWN MED DRAWER 7, Y5N ONE (21:39)
[2020-08-23] MEDS: SUVOREXANT 10 MG TABLET PO PRN (22:15)
[2020-08-24] MEDS ORDERED: METHADONE HCL 40 MG DISPERSABLE TABLET ONE (09:32)
[2020-08-24] MEDS ORDERED: METHADONE HCL 10 MG TABLET ONE (09:32)
[2020-08-24] MEDS: METHADONE 80 MG, METHADONE 30 MG PO SCH (10:16)
[2020-08-24] MEDS: PRENATAL VITAMINS W/ FOLIC ACID TABLET (FP) PO SCH (10:16)
[2020-08-24] MEDS: hydrOXYzine PAMOATE 25 MG CAPSULE (FP) PO PRN (10:16)
[2020-08-24] MEDS: NICOTINE 21 MG/24 HOURS TOPICAL PATCH TD SCH (10:16)
[2020-08-24] MEDS: NICOTINE POLACRILEX 2 MG GUM BUC PRN ×2 (10:17→22:07)
[2020-08-24] MEDS ORDERED: ONDANSETRON *ODT* 4 MG TABLET SL PRN (14:22)
[2020-08-24] MEDS: SUVOREXANT 10 MG TABLET PO PRN (22:02)
[2020-08-24] MEDS: METHOCARBAMOL 500 MG TABLET PO PRN (22:03)
[2020-08-24] MEDS: DOCUSATE SODIUM 100 MG CAPSULE (FP) PO SCH (22:03)
[2020-08-24] MEDS: MELATONIN 5 MG TABLETS PO SCH (22:04)
[2020-08-24] MEDS: QUEtiapine FUMARATE 100 MG TABLET (FP) PO SCH (22:04)
[2020-08-24] MEDS: THIAMINE HCL 100 MG TABLET (FP) PO SCH (22:04)
[2020-08-24] MEDS: HYDROCORTISONE 2.5% TOPICAL CREAM 30 GM TUBE TP SCH (22:05)
[2020-08-24] MEDS: MICONAZOLE NITRATE 14 GM/TUBE TUBE TP SCH (22:06)
[2020-08-24] MEDS: ALBUTEROL SO4 HFA INHALER IH PRN (22:08)
[2020-08-25] MEDS: hydrOXYzine PAMOATE 25 MG CAPSULE (FP) PO PRN ×2 (06:25→18:43)
[2020-08-25] MEDS ORDERED: METHADONE HCL 10 MG TABLET ONE (06:26)
[2020-08-25] MEDS: METHADONE 80 MG, METHADONE 30 MG PO SCH (06:26)
[2020-08-25] MEDS ORDERED: METHADONE HCL 40 MG DISPERSABLE TABLET ONE (06:26)
[2020-08-25] MEDS: METHOCARBAMOL 500 MG TABLET PO PRN ×2 (10:06→18:43)
[2020-08-25] MEDS: PRENATAL VITAMINS W/ FOLIC ACID TABLET (FP) PO SCH (10:06)
[2020-08-25] MEDS: NICOTINE 21 MG/24 HOURS TOPICAL PATCH TD SCH (10:06)
[2020-08-25] MEDS: MICONAZOLE NITRATE 14 GM/TUBE TUBE TP SCH ×2 (10:07→23:40)
[2020-08-25] MEDS: NICOTINE POLACRILEX 2 MG GUM BUC PRN ×2 (10:08→21:22)
[2020-08-25] MEDS: HYDROCORTISONE 2.5% TOPICAL CREAM 30 GM TUBE TP SCH ×2 (10:09→21:21)
[2020-08-25] MEDS: COLLOIDAL OATMEAL 1 BAR EACH TP PRN (18:01)
[2020-08-25] MEDS: IBUPROFEN 400 MG TABLET (FP) PO PRN (18:43)
[2020-08-25] MEDS: SUVOREXANT 10 MG TABLET PO PRN (21:20)
[2020-08-25] MEDS: DOCUSATE SODIUM 100 MG CAPSULE (FP) PO SCH (21:20)
[2020-08-25] MEDS: THIAMINE HCL 100 MG TABLET (FP) PO SCH (21:20)
[2020-08-25] MEDS: QUEtiapine FUMARATE 100 MG TABLET (FP) PO SCH (21:20)
[2020-08-25] MEDS: MELATONIN 5 MG TABLETS PO SCH (21:21)
[2020-08-26] MEDS ORDERED: METHADONE HCL 10 MG TABLET ONE (03:23)
[2020-08-26] MEDS ORDERED: METHADONE HCL 40 MG DISPERSABLE TABLET ONE (03:23)
[2020-08-26] MEDS: METHADONE 80 MG, METHADONE 30 MG PO SCH (06:26)
[2020-08-26] MEDS: hydrOXYzine PAMOATE 25 MG CAPSULE (FP) PO PRN ×2 (06:27→19:18)
[2020-08-26] MEDS: METHOCARBAMOL 500 MG TABLET PO PRN ×2 (10:25→19:19)
[2020-08-26] MEDS: PRENATAL VITAMINS W/ FOLIC ACID TABLET (FP) PO SCH (10:25)
[2020-08-26] MEDS: IBUPROFEN 400 MG TABLET (FP) PO PRN ×2 (10:26→21:57)
[2020-08-26] MEDS: MICONAZOLE NITRATE 14 GM/TUBE TUBE TP SCH ×2 (10:27→22:05)
[2020-08-26] MEDS: HYDROCORTISONE 2.5% TOPICAL CREAM 30 GM TUBE TP SCH ×2 (10:27→22:00)
[2020-08-26] MEDS: NICOTINE 21 MG/24 HOURS TOPICAL PATCH TD SCH (10:28)
[2020-08-26] MEDS: NICOTINE POLACRILEX 2 MG GUM BUC PRN ×3 (10:28→21:59)
[2020-08-26] MEDS: ARTIFICIAL TEARS (POLYVINYL ALCOHOL) OPTH DROPS OU PRN ×2 (10:30→21:57)
[2020-08-26] MEDS: THIAMINE HCL 100 MG TABLET (FP) PO SCH (21:56)
[2020-08-26] MEDS: DOCUSATE SODIUM 100 MG CAPSULE (FP) PO SCH (21:56)
[2020-08-26] MEDS: MELATONIN 5 MG TABLETS PO SCH (21:56)
[2020-08-26] MEDS: QUEtiapine FUMARATE 100 MG TABLET (FP) PO SCH (21:56)
[2020-08-26] MEDS ORDERED: PT OWN MED DRAWER 7, Y5N ONE (21:57)
[2020-08-26] MEDS: SUVOREXANT 10 MG TABLET PO PRN (21:57)
[2020-08-26] MEDS ORDERED: SUVOREXANT 10 MG TABLET PO PRN (22:00)
[2020-08-27] MEDS ORDERED: METHADONE HCL 10 MG TABLET ONE (03:35)
[2020-08-27] MEDS ORDERED: METHADONE HCL 40 MG DISPERSABLE TABLET ONE (03:35)
[2020-08-27] MEDS: hydrOXYzine PAMOATE 25 MG CAPSULE (FP) PO PRN ×2 (06:36→16:33)
[2020-08-27] MEDS: METHADONE 80 MG, METHADONE 30 MG PO SCH (06:36)
[2020-08-27] MEDS: NICOTINE POLACRILEX 2 MG GUM BUC PRN ×3 (06:38→16:33)
[2020-08-27 10:20] VITALS: PULSE 73
[2020-08-27] MEDS: PRENATAL VITAMINS W/ FOLIC ACID TABLET (FP) PO SCH (10:46)
[2020-08-27] MEDS: METHOCARBAMOL 500 MG TABLET PO PRN ×2 (10:48→21:54)
[2020-08-27] MEDS: NICOTINE 21 MG/24 HOURS TOPICAL PATCH TD SCH (10:48)
[2020-08-27] MEDS: HYDROCORTISONE 2.5% TOPICAL CREAM 30 GM TUBE TP SCH ×2 (10:49→21:55)
[2020-08-27] MEDS: MICONAZOLE NITRATE 14 GM/TUBE TUBE TP SCH ×2 (10:49→21:51)
[2020-08-27] MEDS: ARTIFICIAL TEARS (POLYVINYL ALCOHOL) OPTH DROPS OU PRN ×2 (10:50→21:55)
[2020-08-27] MEDS: IBUPROFEN 400 MG TABLET (FP) PO PRN ×2 (10:51→21:54)
[2020-08-27] MEDS ORDERED: SODIUM PHOSPHATE/NA BIPHOS 133 ML ENEMA RC ONE (11:02)
[2020-08-27] MEDS ORDERED: PT OWN MED DRAWER 7, Y5N ONE ×3 (16:31→21:54)
[2020-08-27] MEDS: ALBUTEROL SO4 HFA INHALER IH PRN ×2 (16:33→21:51)
[2020-08-27] MEDS: DOCUSATE SODIUM 100 MG CAPSULE (FP) PO SCH (21:50)
[2020-08-27] MEDS: QUEtiapine FUMARATE 100 MG TABLET (FP) PO SCH (21:50)
[2020-08-27] MEDS: THIAMINE HCL 100 MG TABLET (FP) PO SCH (21:50)
[2020-08-27] MEDS: MELATONIN 5 MG TABLETS PO SCH (21:56)
[2020-08-28] MEDS ORDERED: METHADONE HCL 40 MG DISPERSABLE TABLET ONE (03:22)
[2020-08-28] MEDS ORDERED: METHADONE HCL 10 MG TABLET ONE (03:22)
[2020-08-28] MEDS: METHADONE 80 MG, METHADONE 30 MG PO SCH (06:45)
[2020-08-28] MEDS: hydrOXYzine PAMOATE 25 MG CAPSULE (FP) PO PRN (06:45)
[2020-08-28] MEDS: NICOTINE POLACRILEX 2 MG GUM BUC PRN (06:45)
[2020-08-28] MEDS: METHOCARBAMOL 500 MG TABLET PO PRN (06:48)
[2020-08-28 06:57] VITALS: BP 120/57; TEMP 97.3
[2020-08-28] MEDS: PRENATAL VITAMINS W/ FOLIC ACID TABLET (FP) PO SCH (09:19)
[2020-08-28] MEDS: HYDROCORTISONE 2.5% TOPICAL CREAM 30 GM TUBE TP SCH (09:22)
[2020-08-28] MEDS: NICOTINE 21 MG/24 HOURS TOPICAL PATCH TD SCH (09:22)
[2020-08-28] MEDS: MICONAZOLE NITRATE 14 GM/TUBE TUBE TP SCH (09:22)
== END 2020-08-28 09:43 | disposition home or self-care (01) | DRG 772 ==
LOC: YASAS 12:51 → Y5N 12:52
PROVIDERS: ADMIT Allergy & Immunology; ATTEND Allergy & Immunology
PROC: HZ42ZZZ Group Counseling for Substance Abuse Treatment, Cognitive-Behavioral (ICD-10-PCS; principal; 2020-08-15)
DX: F11.20 Opioid dependence, uncomplicated (principal); F10.20 Alcohol dependence, uncomplicated; F14.20 Cocaine dependence, uncomplicated; F13.20 Sedative, hypnotic or anxiolytic dependence, uncomplicated; F12.20 Cannabis dependence, uncomplicated; F17.210 Nicotine dependence, cigarettes, uncomplicated; K59.00 Constipation, unspecified; K64.9 Unspecified hemorrhoids; L29.2 Pruritus vulvae
CPT/HCPCS: 36415; 87389; 90670; C9803; Q0162; U0003; U0005

== ENCOUNTER 2021-03-31 15:24 | Inpatient (IN) | payer OTHER ==
[2021-03-31 18:13] VITALS: BMI 34.0
[2021-03-31] MEDS ORDERED: IBUPROFEN 400 MG TABLET (FP) PO PRN (19:36)
[2021-03-31] MEDS ORDERED: ACETAMINOPHEN 325 MG TABLET (FP) PO PRN (19:36)
[2021-03-31] MEDS ORDERED: LOPERAMIDE HCL 2 MG CAPSULE PO PRN (19:36)
[2021-03-31] MEDS ORDERED: MAGNESIUM CITRATE 300 ML BOTTLE PO PRN (19:36)
[2021-03-31] MEDS ORDERED: MAGNESIUM HYDROX 2400MG/30ML ORAL SUSPENSION 30 ML CUP PO PRN (19:36)
[2021-03-31] MEDS ORDERED: NICOTINE 10 MG CARTRIDGE (INHALER) IH PRN (19:36)
[2021-03-31] MEDS ORDERED: P-EPHED 60MG/TRIPROLIDI 2.5MG TABLET PO PRN (19:36)
[2021-03-31] MEDS ORDERED: MAG HYDROX/AL HYDROX/SIMETH 30 ML UNIT-DOSE CUP PO PRN (19:36)
[2021-03-31] MEDS ORDERED: guaiFENesin 200 MG/10 ML 10 ML UNIT-DOSE CUPS PO PRN (19:36)
[2021-03-31] MEDS ORDERED: MELATONIN 5 MG TABLETS PO SCH (22:00)
[2021-03-31] MEDS: THIAMINE HCL 100 MG TABLET (FP) PO SCH (22:53)
[2021-03-31] MEDS: hydrOXYzine PAMOATE 25 MG CAPSULE (FP) PO SCH (22:53)
[2021-03-31] MEDS: ALBUTEROL SO4 HFA INHALER IH SCH ×2 (22:53→23:40)
[2021-03-31] MEDS: METHOCARBAMOL 500 MG TABLET PO SCH (22:53)
[2021-03-31] MEDS: ARTIFICIAL TEARS (POLYVINYL ALCOHOL) OPTH DROPS OU SCH (22:54)
[2021-03-31] MEDS ORDERED: TUBERCULIN PPD 5 TU/0.1ML VIAL ID ONE (23:18)
[2021-04-01] MEDS: ALBUTEROL SO4 HFA INHALER IH SCH ×3 (06:06→11:16)
[2021-04-01] MEDS: METHOCARBAMOL 500 MG TABLET PO SCH ×3 (07:36→21:08)
[2021-04-01] MEDS: ARTIFICIAL TEARS (POLYVINYL ALCOHOL) OPTH DROPS OU SCH ×3 (07:36→21:10)
[2021-04-01] MEDS: hydrOXYzine PAMOATE 25 MG CAPSULE (FP) PO SCH ×2 (07:36→09:40)
[2021-04-01] MEDS: methaDONE HCL 40 MG DISPERSABLE TABLET PO SCH (09:37)
[2021-04-01] MEDS: NICOTINE 7 MG/24 HOURS TOPICAL PATCH TD SCH (09:39)
[2021-04-01] MEDS: PRENATAL VITAMINS W/ FOLIC ACID TABLET (FP) PO SCH (09:39)
[2021-04-01] MEDS ORDERED: cloNIDine HCL 0.1 MG TABLET PO SCH (10:00)
[2021-04-01 10:10] LABS: HEMATOCRIT 37.5 % (32.4-45.2); HEMOGLOBIN 12.8 GM/dL (10.7-15.3); MCH 27.2 pg (25.7-33.7); MCHC 34.1 g/dl (32.0-36.0); MEAN CELL VOLUME 79.8 fl (80-96); MEAN PLT VOLUME 9.4 fl (7.5-11.1); PLATELET COUNT 246 10^3/uL (134-434); RBC 4.69 M/mm3 (3.60-5.2); RDW 16.6 % (11.6-15.6)
[2021-04-01 10:16] LABS: CALCIUM 8.7 mg/dL (8.5-10.1)
[2021-04-01 10:17] LABS: ALBUMIN 3.4 g/dl (3.4-5.0); BLOOD UREA NITROGEN 12.9 mg/dL (7-18)
[2021-04-01 10:20] LABS: BILIRUBIN,TOTAL 0.6 mg/dL (0.2-1); CREATININE 0.8 mg/dL (0.55-1.3)
[2021-04-01 10:21] LABS: TOT PROT 7.1 g/dl (6.4-8.2)
[2021-04-01] MEDS ORDERED: HYDROCORTISONE 1% TOPICAL CREAM 30 GM TUBE TP PRN (10:26)
[2021-04-01] MEDS ORDERED: ALBUTEROL SO4 HFA INHALER IH PRN (11:26)
[2021-04-01] MEDS ORDERED: FLU VACC QS2021-22(6MOS UP)/PF 60 MCG/0.5 ML SYRINGE IM ONE (13:00)
[2021-04-01] MEDS: NICOTINE POLACRILEX 2 MG GUM BUC PRN (13:31)
[2021-04-01] MEDS: DOCUSATE SODIUM 100 MG CAPSULE (FP) PO SCH ×2 (13:42→21:08)
[2021-04-01 14:00] LABS: HIV INTERPRETATION NEGATIVE (NEGATIVE)
[2021-04-01] MEDS: THIAMINE HCL 100 MG TABLET (FP) PO SCH (21:08)
[2021-04-01] MEDS: cloNIDine HCL 0.1 MG TABLET PO SCH (21:09)
[2021-04-01] MEDS: QUEtiapine FUMARATE 100 MG TABLET (FP) PO SCH (21:09)
[2021-04-01] MEDS: SUVOREXANT 10 MG TABLET PO PRN (21:12)
[2021-04-01] MEDS: hydrOXYzine PAMOATE 25 MG CAPSULE (FP) PO PRN (21:15)
[2021-04-01 21:56] LABS: EPI CELLS >36 /uL (0-25.1); HYALINE CASTS 1 /uL (0-3.1); PH,URINE 7.5 (5.0-8.0); URINE APPEARANCE CLOUDY; URINE BACTERIA 2702 /uL (0-1359); URINE BILIRUBIN NEGATIVE (NEGATIVE); URINE COLOR YELLOW; URINE GLUCOSE (UA) NEGATIVE (NEGATIVE); URINE KETONE NEGATIVE (NEGATIVE); URINE LEUK ESTERASE TRACE (NEGATIVE); URINE NITRITE NEGATIVE (NEGATIVE); URINE PROTEIN NEGATIVE (NEGATIVE); URINE RBC 21 /uL (0-23.9); URINE UROBILINOGEN 0.2 mg/dL (0.2-1.0); URINE WBC 147 /uL (0-25.8)
[2021-04-02] MEDS: METHOCARBAMOL 500 MG TABLET PO SCH ×3 (06:38→22:13)
[2021-04-02] MEDS: DOCUSATE SODIUM 100 MG CAPSULE (FP) PO SCH ×3 (06:38→22:12)
[2021-04-02] MEDS: methaDONE HCL 40 MG DISPERSABLE TABLET PO SCH (06:38)
[2021-04-02] MEDS: hydrOXYzine PAMOATE 25 MG CAPSULE (FP) PO PRN ×2 (06:39→13:51)
[2021-04-02] MEDS: ARTIFICIAL TEARS (POLYVINYL ALCOHOL) OPTH DROPS OU SCH ×3 (06:41→22:11)
[2021-04-02] MEDS: PRENATAL VITAMINS W/ FOLIC ACID TABLET (FP) PO SCH (11:21)
[2021-04-02] MEDS: NICOTINE 7 MG/24 HOURS TOPICAL PATCH TD SCH (11:21)
[2021-04-02] MEDS: COLLOIDAL OATMEAL 1 BAR EACH TP PRN (11:23)
[2021-04-02] MEDS: cloNIDine HCL 0.1 MG TABLET PO SCH ×2 (11:24→22:13)
[2021-04-02] MEDS: QUEtiapine FUMARATE 100 MG TABLET (FP) PO SCH (22:13)
[2021-04-02] MEDS: THIAMINE HCL 100 MG TABLET (FP) PO SCH (22:13)
[2021-04-03] MEDS: DOCUSATE SODIUM 100 MG CAPSULE (FP) PO SCH ×3 (06:48→21:29)
[2021-04-03] MEDS: hydrOXYzine PAMOATE 25 MG CAPSULE (FP) PO PRN ×2 (06:49→10:45)
[2021-04-03] MEDS: METHOCARBAMOL 500 MG TABLET PO SCH ×3 (06:49→21:30)
[2021-04-03] MEDS: methaDONE HCL 40 MG DISPERSABLE TABLET PO SCH (06:49)
[2021-04-03] MEDS: NICOTINE POLACRILEX 2 MG GUM BUC PRN ×2 (06:53→10:47)
[2021-04-03] MEDS: ARTIFICIAL TEARS (POLYVINYL ALCOHOL) OPTH DROPS OU SCH ×3 (07:01→21:29)
[2021-04-03] MEDS: cloNIDine HCL 0.1 MG TABLET PO SCH ×2 (10:44→21:30)
[2021-04-03] MEDS: PRENATAL VITAMINS W/ FOLIC ACID TABLET (FP) PO SCH (10:44)
[2021-04-03] MEDS: NICOTINE 7 MG/24 HOURS TOPICAL PATCH TD SCH (10:45)
[2021-04-03] MEDS ORDERED: PT OWN MED DRAWER 7, Y5N ONE (13:29)
[2021-04-03] MEDS: THIAMINE HCL 100 MG TABLET (FP) PO SCH (21:29)
[2021-04-03] MEDS: QUEtiapine FUMARATE 100 MG TABLET (FP) PO SCH (21:30)
[2021-04-03] MEDS: SUVOREXANT 10 MG TABLET PO PRN (21:31)
[2021-04-04] MEDS: hydrOXYzine PAMOATE 25 MG CAPSULE (FP) PO PRN ×3 (06:49→21:46)
[2021-04-04] MEDS: methaDONE HCL 40 MG DISPERSABLE TABLET PO SCH (06:50)
[2021-04-04] MEDS: DOCUSATE SODIUM 100 MG CAPSULE (FP) PO SCH ×3 (06:51→21:44)
[2021-04-04] MEDS: ARTIFICIAL TEARS (POLYVINYL ALCOHOL) OPTH DROPS OU SCH ×3 (06:53→22:13)
[2021-04-04] MEDS: METHOCARBAMOL 500 MG TABLET PO SCH ×3 (06:59→21:44)
[2021-04-04] MEDS: PRENATAL VITAMINS W/ FOLIC ACID TABLET (FP) PO SCH (10:24)
[2021-04-04] MEDS: NICOTINE 7 MG/24 HOURS TOPICAL PATCH TD SCH (10:24)
[2021-04-04] MEDS: NICOTINE POLACRILEX 2 MG GUM BUC PRN (10:25)
[2021-04-04] MEDS: cloNIDine HCL 0.1 MG TABLET PO SCH ×2 (10:25→22:14)
[2021-04-04] MEDS ORDERED: FLUCONAZOLE 150 MG TABLET PO ONE (19:45)
[2021-04-04] MEDS: QUEtiapine FUMARATE 100 MG TABLET (FP) PO SCH (21:43)
[2021-04-04] MEDS: THIAMINE HCL 100 MG TABLET (FP) PO SCH (21:44)
[2021-04-04] MEDS: SUVOREXANT 10 MG TABLET PO PRN (21:46)
[2021-04-05] MEDS: metroNIDAZOLE 500 MG TABLET PO SCH ×4 (00:16→21:40)
[2021-04-05] MEDS: methaDONE HCL 40 MG DISPERSABLE TABLET PO SCH (06:22)
[2021-04-05] MEDS: DOCUSATE SODIUM 100 MG CAPSULE (FP) PO SCH ×3 (06:23→21:38)
[2021-04-05] MEDS: METHOCARBAMOL 500 MG TABLET PO SCH ×3 (06:23→21:38)
[2021-04-05] MEDS: hydrOXYzine PAMOATE 25 MG CAPSULE (FP) PO PRN (06:23)
[2021-04-05] MEDS: ARTIFICIAL TEARS (POLYVINYL ALCOHOL) OPTH DROPS OU SCH ×3 (06:38→21:40)
[2021-04-05] MEDS: PRENATAL VITAMINS W/ FOLIC ACID TABLET (FP) PO SCH (10:37)
[2021-04-05] MEDS: NICOTINE 7 MG/24 HOURS TOPICAL PATCH TD SCH (10:37)
[2021-04-05] MEDS: cloNIDine HCL 0.1 MG TABLET PO SCH ×2 (10:38→21:38)
[2021-04-05] MEDS: NICOTINE POLACRILEX 2 MG GUM BUC PRN ×2 (10:39→14:12)
[2021-04-05] MEDS: COLLOIDAL OATMEAL 1 BAR EACH TP PRN (14:10)
[2021-04-05] MEDS: THIAMINE HCL 100 MG TABLET (FP) PO SCH (21:39)
[2021-04-05] MEDS: QUEtiapine FUMARATE 100 MG TABLET (FP) PO SCH (21:39)
[2021-04-05] MEDS: SUVOREXANT 10 MG TABLET PO PRN (21:42)
[2021-04-06] MEDS: hydrOXYzine PAMOATE 25 MG CAPSULE (FP) PO PRN (06:28)
[2021-04-06] MEDS: ARTIFICIAL TEARS (POLYVINYL ALCOHOL) OPTH DROPS OU SCH ×3 (06:28→21:30)
[2021-04-06] MEDS: METHOCARBAMOL 500 MG TABLET PO SCH ×3 (06:28→22:11)
[2021-04-06] MEDS: DOCUSATE SODIUM 100 MG CAPSULE (FP) PO SCH ×3 (06:28→21:30)
[2021-04-06] MEDS: methaDONE HCL 40 MG DISPERSABLE TABLET PO SCH (06:29)
[2021-04-06] MEDS: metroNIDAZOLE 500 MG TABLET PO SCH (06:29)
[2021-04-06] MEDS: NICOTINE POLACRILEX 2 MG GUM BUC PRN ×3 (06:30→13:48)
[2021-04-06] MEDS: PRENATAL VITAMINS W/ FOLIC ACID TABLET (FP) PO SCH (10:53)
[2021-04-06] MEDS: NICOTINE 7 MG/24 HOURS TOPICAL PATCH TD SCH (10:53)
[2021-04-06] MEDS: cloNIDine HCL 0.1 MG TABLET PO SCH ×2 (11:58→21:30)
[2021-04-06] MEDS: BENZOYL PEROXIDE 5% 60 GM GEL..GRAM. TP SCH ×2 (12:30→21:31)
[2021-04-06] MEDS: metroNIDAZOLE 250 MG TABLET PO SCH ×2 (13:47→22:12)
[2021-04-06] MEDS: THIAMINE HCL 100 MG TABLET (FP) PO SCH (21:30)
[2021-04-06] MEDS: SUVOREXANT 10 MG TABLET PO PRN (21:32)
[2021-04-06] MEDS ORDERED: QUEtiapine FUMARATE 200 MG TABLET PO SCH (22:00)
[2021-04-07] MEDS: hydrOXYzine PAMOATE 50 MG CAPSULE (FP) PO PRN ×2 (06:45→10:38)
[2021-04-07] MEDS: DOCUSATE SODIUM 100 MG CAPSULE (FP) PO SCH ×2 (06:45→13:42)
[2021-04-07] MEDS: METHOCARBAMOL 500 MG TABLET PO SCH ×2 (06:45→13:42)
[2021-04-07] MEDS: methaDONE HCL 40 MG DISPERSABLE TABLET PO SCH (06:45)
[2021-04-07] MEDS ORDERED: PT OWN MED DRAWER 7, Y5N ONE ×2 (06:48→13:30)
[2021-04-07] MEDS: metroNIDAZOLE 250 MG TABLET PO SCH ×2 (06:48→13:42)
[2021-04-07] MEDS: ARTIFICIAL TEARS (POLYVINYL ALCOHOL) OPTH DROPS OU SCH ×2 (06:49→13:43)
[2021-04-07] MEDS: NICOTINE POLACRILEX 2 MG GUM BUC PRN ×2 (06:49→10:39)
[2021-04-07 07:21] VITALS: BP 116/60; PULSE 57; TEMP 97.9
[2021-04-07] MEDS: PRENATAL VITAMINS W/ FOLIC ACID TABLET (FP) PO SCH (10:35)
[2021-04-07] MEDS: NICOTINE 7 MG/24 HOURS TOPICAL PATCH TD SCH (10:36)
[2021-04-07] MEDS: BENZOYL PEROXIDE 5% 60 GM GEL..GRAM. TP SCH (10:36)
[2021-04-07] MEDS: cloNIDine HCL 0.1 MG TABLET PO SCH (10:36)
== END 2021-04-07 14:45 | disposition home or self-care (01) | DRG 772 ==
LOC: YASAS 15:24 → Y5N 20:54
PROVIDERS: ADMIT Allergy & Immunology; ATTEND Allergy & Immunology
PROC: HZ42ZZZ Group Counseling for Substance Abuse Treatment, Cognitive-Behavioral (ICD-10-PCS; principal; 2021-03-31)
DX: F13.20 Sedative, hypnotic or anxiolytic dependence, uncomplicated (principal); F11.20 Opioid dependence, uncomplicated; F14.20 Cocaine dependence, uncomplicated; F10.10 Alcohol abuse, uncomplicated; F17.210 Nicotine dependence, cigarettes, uncomplicated; F43.10 Post-traumatic stress disorder, unspecified; F31.9 Bipolar disorder, unspecified; F19.24 Other psychoactive substance dependence with psychoactive substance-induced mood disorder; F19.282 Other psychoactive substance dependence with psychoactive substance-induced sleep disorder; I10 Essential (primary) hypertension; J45.909 Unspecified asthma, uncomplicated; K21.9 Gastro-esophageal reflux disease without esophagitis; Z91.410 Personal history of adult physical and sexual abuse; Z62.810 Personal history of physical and sexual abuse in childhood; Z86.69 Personal history of other diseases of the nervous system and sense organs; Z91.51 Personal history of suicidal behavior; Z56.0 Unemployment, unspecified
CPT/HCPCS: 36415; 80053; 80164; 81003; 81025; 85027; 86780; 87086; 87389; C9803; J0735; U0003; U0005